=== PATIENT | female | born 2000 | race Hispanic/Latino ===

== ENCOUNTER 2024-02-12 19:21 | Emergency (ER) | payer SELFPAY ==
[2024-02-12 21:32] LABS: Absolute Eosinophils 0.1 K/uL (0-0.5); Absolute Lymphocytes (CBC) 3.2 K/uL (0.7-4.9); Absolute Monocytes 0.7 K/uL (0.1-1.3); Absolute Neutrophil 5.1 K/uL (1.8-8.0); Basophils % 0.5 % (0-1.3); Eosinophils % 0.6 % (0-4.4); Hematocrit 40.9 % (36.0-45.0); Hemoglobin 13.9 g/dL (12.0-15.0); Lymphocytes % 35.1 % (15.3-44.8); MCH 30.3 pg (27.0-35.0); MCV 89.1 fL (80-100); MPV 10.6 fL (7.6-11.3); Monocytes % 8.1 % (3.3-12.3); Neutrophils % 55.7 % (41.7-73.7); Nucleated Red Blood Cells % 0.1 % (0-0); Platelets 197 thou/uL (152-406); RBC Red Blood Cell Count 4.59 M/uL (3.86-4.86); Red Cell Distribution Width 13.6 % (12.1-15.2)
[2024-02-12 21:34] LABS: Specific Gravity 1.018 (1.005-1.030); Urine Bacteria None Seen /HPF (<20); Urine Bilirubin NEGATIVE (Negative); Urine Blood 3+ (Negative); Urine Clarity Extremely Turbid (Clear); Urine Color Light-Yellow (Yellow); Urine Culture Reflex Order NOT NEEDED; Urine Glucose NEGATIVE (Negative); Urine Ketones 4+ (Over) (Negative); Urine Microscopic Reflex YN ORDER UMIC; Urine Mucus 1+ /HPF (None Seen); Urine Nitrite NEGATIVE (Negative); Urine Protein NEGATIVE (Negative); Urine RBC <5 /HPF (None Seen); Urine Urobilinogen Normal (Normal); Urine WBC <5 /HPF (<5); Urine WBC Clump Rare /HPF (None Seen); Urine Yeast (Budding) Trace /HPF (None Seen); Urine pH 5.5 (5.0-7.0)
[2024-02-12] MEDS ORDERED: NA CHLORIDE 0.9% 1,000 ML ONE (21:45)
[2024-02-12 21:48] LABS: SARS-CoV-2 Antigen CONTROL BLUE LINE VIS/BG OK; SARS-CoV-2 Antigen Rapid Res Negative (Negative)
[2024-02-12 21:49] LABS: Albumin/Globulin Ratio 1.2 (1.1-1.8); Anion Gap 10.5 mEq/L (5.0-15.0); Bilirubin Total 0.5 mg/dL (0.2-1.0); Globulin 3.4 g/dL (2.3-3.5); Potassium 3.5 mEq/L (3.5-5.1); Protein, Total 7.4 g/dL (6.4-8.2)
--- NOTE | 2024-02-12 22:44 | RAD REPORT ---
EXAM: Soft Tissue Neck W/Contr INDICATION: Neck pain. Possible foreign body. Dysphasia. TECHNIQUE: Helical CT examination of the neck with IV 100 cc Isovue contrast. Sagittal and coronal re formations were generated. This exam was performed according to our departmental dose-optimization program, which includes automated exposure control, adjustment of the mA and/or kV according to patie nt size and/or use of iterative reconstruction technique. COMPARISON: None. FINDINGS: The pharynx, larynx and subglottic trachea are unremarkable Parotid, submandibular and thyroid glands appear normal. No lymphadenopathy seen. No fluid within the visualized sinuses/mastoids. A radiopaque foreign body not visualized. IMPRESSION: No significant abnormalities displayed
[2024-02-12] MEDS ORDERED: GLUCAGON 1 MG/VIAL ONE (23:12)
--- NOTE | 2024-02-13 00:53 | ER ---
Nurse's Notes [facility] Name: Patricia Hastings Age: 24 yrs Sex: Female : 2000 Arrival Date: 02/12/2024 Time: 19:21 Bed 14 Private MD: Diagnosis: Dysphagia, unspecified Presentation: 02/11 20:15 Chief complaint: Patient states: last three weeks I've had inflammation in my throat. tm6 It is hard to eat or drink because it feels like the food gets stuck. I went to a clinic and they gave me antibiotics, but they don't work. Coronavirus screen: Client denies travel out of the [place] in the last 14 days. Ebola Screen: Patient negative for fever greater than or equal to 101.5 degrees Fahrenheit, and additional compatible Ebola Virus Disease symptoms Patient denies exposure to infectious person. Patient denies travel to an Ebola-affected area in the 21 days before illness onset. No symptoms or risks identified at this time. Initial Sepsis Screen: Does the patient meet any 2 criteria? No. Patient's initial sepsis screen is negative. Does the patient have a suspected source of infection? No. Patient's initial sepsis screen is negative. Risk Assessment: Do you want to hurt yourself or someone else? Patient reports no desire to harm self or others. Onset of symptoms was January 22, 2024. 20:15 Method Of Arrival: Ambulatory tm6 20:18 Acuity: JANES 4 tm6 Triage Assessment: 20:18 General: Appears in no apparent distress. Behavior is calm, cooperative. Pain: tm6 Complains of pain in throat Pain currently is 10 out of 10 on a pain scale. Pain began three weeks ago. EENT: Reports difficulty swallowing since three weeks ago pain in throat. Neuro: Level of Consciousness is awake, alert, obeys commands, Oriented to person, place, time, situation. Cardiovascular: Patient's skin is warm and dry. Respiratory: Airway is patent Respiratory effort is even, unlabored, Respiratory pattern is regular, symmetrical. GI: No signs and/or symptoms were reported involving the gastrointestinal system. Abdomen is flat, non-distended. : No signs and/or symptoms were reported regarding the genitourinary system. Derm: No deficits noted. No signs and/or symptoms reported regarding the dermatologic system. Musculoskeletal: No signs and/or symptoms reported regarding the musculoskeletal system. 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 - Infectious Disease History:: Denies. - Social history:: Smoking status: Patient denies any tobacco usage or history of. Patient/guardian denies using alcohol. Screenin:49 [facility] ED Fall Risk Assessment (Adult) History of falling in the last 3 months, cp4 including since admission No falls in past 3 months (0 pts) Confusion or Disorientation No (0 pts) Intoxicated or Sedated No (0 pts) Impaired Gait No (0 pts) Mobility Assist Device Used No (0 pt) Altered Elimination No (0 pt) Score/Fall Risk Level 0 - 2 = Low Risk Oriented to surroundings, Maintained a safe environment, Assessed \T\ reinforced patient's understanding of fall precautions, Hourly rounding (assess needs \T\ fall precautionary measures) done. Abuse screen: Denies threats or abuse. Nutritional screening: No deficits noted. Tuberculosis screening: No symptoms or risk factors identified. Assessment: 21:49 General: Appears in no apparent distress. comfortable, Behavior is calm, cooperative, cp4 appropriate for age. Pain: Denies pain. Neuro: Level of Consciousness is awake, alert, obeys commands, Oriented to person, place, time, situation. Cardiovascular: Patient's skin is warm and dry. Respiratory: Airway is patent Respiratory effort is even, unlabored. GI: No signs and/or symptoms were reported involving the gastrointestinal system. : No signs and/or symptoms were reported regarding the genitourinary system. EENT: Reports difficulty swallowing. 23:21 Reassessment: Adoption Social Worker [id number] used to explain to patient medication and PO challenge.cp4 Vital Signs: 20:14 BP 144 / 88; Pulse 74; Resp 17; Temp 98.8(O); Pulse Ox 98% on R/A; MAP 103 mmHg; Weight tm6 58.97 kg; Height 5 ft. 4 in. ; Pain 10/10; 23:00 BP 124 / 94; Pulse 80; Resp 18; Pulse Ox 100% ; cp4 1012 01:03 BP 102 / 78; Pulse 81; Resp 18; Pulse Ox 99% ; cp4 02/11 20:14 Body Mass Index 21.66 (58.97 kg, 165 cm) tm6 02/11 20:14 Pain Scale: Adult tm6 ED Course: 02/11 19:24 Patient arrived in ED. am2 19:59 [facility] sb4 19:59 Varinder Almaraz MD is Attending Physician. sb4 20:15 Arm band placed on right wrist. tm6 20:20 Triage completed. tm6 21:24 Flu Sent. ha1 21:24 SARS RAPID Sent. ha1 21:24 Strep Sent. ha1 21:24 Inserted saline lock: 20 gauge in right antecubital area, using aseptic technique. ha1 Blood collected. Flushed with 10 mL NS. 21:42 Maria A Maharaj is Primary Nurse. cp4 21:49 Bed in low position. Call light in reach. Side rails up X 1. cp4 21:49 No provider procedures requiring assistance completed. cp4 22:16 CT Soft Tissue Neck W/contr In Process Unspecified. EDMS 02/12 00:52 Shiv Back MD is Referral Physician. sb4 00:52 Liliya Frankel MD is Referral Physician. sb4 01:04 Provided Education on: globus pharyngeus. cp4 01:04 intact, bleeding controlled, No redness/swelling at site. Pressure dressing applied. cp4 Administered Medications: 02/11 21:47 Drug: NS 0.9% IV 1000 ml IV at 1 bolus Per protocol; to be given as a bolus over 60 cp4 minutes Route: IV; Rate: 1 bolus; Site: right antecubital; 23:09 Follow up: Response: No adverse reaction; IV Status: Completed infusion cp4 23:21 Drug: Glucagon IVP 1 mg IVP once Route: IVP; Site: right antecubital; cp4 02/12 00:00 Follow up: Response: No adverse reaction cp4 Medication: 02/11 21:49 VIS not applicable for this client. cp4 Outcome: 02/12 00:52 Discharge ordered by . sb4 01:04 Discharged to home ambulatory, cp4 01:04 Condition: stable 01:04 Discharge instructions given to patient, Instructed on discharge instructions, follow up and referral plans. medication usage, Demonstrated understanding of instructions, follow-up care, medications, lang interpreter #[id number] used to discharge patient. 01:05 Patient left the ED. cp4 Signatures: Dispatcher [employer] ED Rodney Mari am2 Sonia Murphy, RN RN ha1 Liza Farley, PABita PABita mclaughlin4 Maria A Maharaj cp4 Halina Araiza RN RN tm6 Corrections: (The following items were deleted from the chart) 02/11 20:20 20:15 Chief complaint: Patient states: last three weeks I've had inflammation in my tm6 throat. It is hard to eat or drink tm6
--- NOTE | 2024-02-13 00:53 | EDPHYS ---
Physician Documentation [facility] Name: Patricia Hastings Age: 24 yrs Sex: Female : 2000 Arrival Date: 02/12/2024 Time: 19:21 Bed 14 Private MD: ED Physician Varinder Almaraz HPI: 02/11 22:49 This 24 yrs old Female presents to ER via Ambulatory with complaints of sb4 difficulty swallowing. 22:49 The patient presents with dysphagia, of both solids and liquids, a foreign body sb4 sensation in the throat. Onset: The symptoms/episode began/occurred 3 week(s) ago. 02/12 02:07 Foreign body sensation and difficulty swallowing for 3 weeks. Saw PCP who gave sb4 antibiotic injection. Patient states that symptoms have not improved. She is able to swallow but just feels like there is a lump in her throat. Has not regurgitated or vomited. 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 - Infectious Disease History:: Denies. - Social history:: Smoking status: Patient denies any tobacco usage or history of. Patient/guardian denies using alcohol. ROS: 02/12 02:07 Constitutional: Negative for fever, chills, and weight loss, sb4 ENT: Positive for difficulty swallowing, All other systems are negative, Exam: 02:07 Constitutional: This is a well developed, well nourished patient who is awake, alert, sb4 and in no acute distress. Head/Face: Normocephalic, atraumatic. Eyes: Extra-ocular motions intact. Periorbital areas with no swelling, redness, or edema. Cardiovascular: Regular rate and rhythm with a normal S1 and S2. Respiratory: Lungs have equal breath sounds bilaterally, clear to auscultation and percussion. No rales, rhonchi or wheezes noted. No increased work of breathing, no retractions or nasal flaring. Skin: Warm, dry with normal turgor. Normal color with no rashes, no lesions, and no evidence of cellulitis. 02:07 ENT: Posterior pharynx: Airway: normal, no evidence of obstruction, patent, Tonsils: are normal in appearance, 02:07 Neck: External neck: is normal, no acute changes, Thyroid: appears normal, Vital Signs: 02/11 20:14 BP 144 / 88; Pulse 74; Resp 17; Temp 98.8(O); Pulse Ox 98% on R/A; MAP 103 mmHg; Weight tm6 58.97 kg; Height 5 ft. 4 in. ; Pain 02/10; 23:00 BP 124 / 94; Pulse 80; Resp 18; Pulse Ox 100% ; cp4 02/12 01:03 BP 102 / 78; Pulse 81; Resp 18; Pulse Ox 99% ; cp4 02/11 20:14 Body Mass Index 21.66 (58.97 kg, 165 cm) tm6 02/11 20:14 Pain Scale: Adult tm6 MDM: 02/11 20:00 Patient medically screened. sb4 02/12 02:09 Data reviewed: vital signs, nurses notes, lab test result(s), radiologic studies, I sb4 have discussed the patient's presentation/case with the attending Emergency Department Physician; and as a result, I will discharge patient. 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 ED course: Patient is tolerating p.o. but still states she feels "inflammation" in her throat. Vitals are stable, she is handling her secretions fine, will discharge home with steroids and PPIs, and follow-up instructions with ENT and GI. 02/11 20:28 Order name: CBC with Diff; Complete Time: 21:41 sb4 02/11 20:28 Order name: CMP; Complete Time: 21:51 sb4 02/11 20:28 Order name: Lipase; Complete Time: 21:51 sb4 02/11 20:28 Order name: Test, Urine; Complete Time: 21:40 sb4 02/11 20:28 Order name: Urinalysis w/ reflexes; Complete Time: 21:40 sb4 02/11 20:28 Order name: Strep sb4 02/11 20:28 Order name: SARS RAPID; Complete Time: 21:51 sb4 02/11 20:28 Order name: Flu; Complete Time: 21:56 sb4 02/11 21:50 Order name: Throat Culture EDMS 02/11 20:28 Order name: CT Soft Tissue Neck W/contr; Complete Time: 22:45 sb4 02/11 20:28 Order name: IV Saline Lock; Complete Time: 21:24 sb4 02/11 20:28 Order name: Labs collected and sent; Complete Time: 21:24 sb4 02/11 22:46 Order name: PO challenge: carbonation; Complete Time: 23:40 sb4 Administered Medications: 02/11 21:47 Drug: NS 0.9% IV 1000 ml IV at 1 bolus Per protocol; to be given as a bolus over 60 cp4 minutes Route: IV; Rate: 1 bolus; Site: right antecubital; 23:09 Follow up: Response: No adverse reaction; IV Status: Completed infusion cp4 23:21 Drug: Glucagon IVP 1 mg IVP once Route: IVP; Site: right antecubital; cp4 02/12 00:00 Follow up: Response: No adverse reaction cp4 Disposition Summary: 02/13/24 00:52 Discharge Ordered Notes: Location: Home sb4 Problem: an ongoing problem sb4 Symptoms: are unchanged sb4 Condition: Stable sb4 Diagnosis - Dysphagia, unspecified sb4 Followup: sb4 - With: Shiv Back MD - When: 2 - 3 days - Reason: Further diagnostic work-up, Recheck today's complaints, Re-evaluation by your physician Followup: sb4 - With: Liliya Frankel MD - When: As needed - Reason: Further diagnostic work-up, Recheck today's complaints, Re-evaluation by your physician Discharge Instructions: - Discharge Summary Sheet sb4 - Dysphagia sb4 - Globus Pharyngeus sb4 Forms: - Patient Portal Instructions sb4 - Leadership Thank You Letter sb4 Prescriptions: - pantoprazole 40 mg Oral granules delayed release for susp packet - administer 1 packet ORAL route daily for 4 wks; 20 packet; Refills: 0, Product sb4 Selection Permitted - prednisone 5 mg/5 mL Oral solution - take 20 milliliter ORAL route every 12 hours for 5 days; 200 milliliter; sb4 Refills: 0, Product Selection Permitted Addendum: 02/16/2024 13:29 Co-signature as Attending Physician, Varinder Almaraz MD I reviewed the patient's care r t provided by the Advanced Practice Provider and agree with the diagnosis and treatment plan. Signatures: Dispatcher [employer] EDMS Liza Farley, PAMoniC PABita sb4 Varinder Almaraz MD MD rt Maria A Maharaj 4 Halina Araiza RN RN tm6 Corrections: (The following items were deleted from the chart) 02/11 20:29 20:29 CBC+H.LAB.BRZ ordered. EDMS EDMS 20:29 20:29 COMPREHENSIVE METABOLIC PANEL+C.LAB.BRZ ordered. EDMS EDMS 20:29 20:29 LIPASE+C.LAB.BRZ ordered. EDMS EDMS 20:29 20:29 Test, Urine+UC.LAB.BRZ ordered. EDMS EDMS 20:29 20:29 Urinalysis+U.LAB.BRZ ordered. EDMS EDMS 20:29 20:29 Group A Streptococcus Rapid Sc+BA.LAB.BRZ ordered. EDMS EDMS 20:29 20:29 SARS-COV-2 Antigen Rapid+I.LAB.BRZ ordered. EDMS EDMS 20:29 20:29 Influenza Screen (A \\T\\ B)+BA.LAB.BRZ ordered. EDMS EDMS 20:29 20:29 Soft Tissue Neck W/Contr+CT.RAD.BRZ ordered. EDMS EDMS
[2024-02-13 05:06] VITALS: TEMP 98.8
[2024-02-13 05:10] VITALS: BP 102/78; O2SAT 99
== END 2024-02-13 01:05 | disposition home or self-care (01) ==
LOC: ER 19:21
DX: R13.10 Dysphagia, unspecified (principal); Z11.52 Encounter for screening for COVID-19
CPT/HCPCS: 36415; 70491; 80053; 81001; 81025; 83690; 85025; 87070; 87081; 87804; 87811; 96361; 96374; 99284; J1610; J7030; Q9967

== ENCOUNTER 2024-07-15 19:34 | Inpatient (IN) | payer SELFPAY ==
--- OUTSIDE RECORDS SUMMARY | 2024-07-15 19:39 | XMS REPORT | Continuity of Care Document ---
Author Name Unknown Address [address] [facility] [address] [place] [address] [facility] Address [address] [facility] [place] [address] Care Team Providers Care Spice Mixer Name Role Phone PAIGE CELAYA Primary Care Physician Unav ailable SHAREE SHERWOOD Attending Clinician Unavaila ble PAIGE CELAYA Attending Clinician Unavail able Nurse, Chris Ott Rgv Cprit Obgyn Attending Clini olga Unavailable Akinaubree WHPaige FLOWERS Attending Clinician + CHRIS JACKSON Attending Clinician Unavailable ALLAN ADLER Attending Clinician Unavailable ALLAN ADLER Attending Clinician Unavailable Mihir Barragan MD Attending Clinician Guillermina Callahan MD Attending Clinician [phone] 1, [facility] Attending Clinician UnavailGrisel Aguirre MD Attending Clinician [phone] GRISEL BARRAGAN Attending Clinician Unavailable GRISEL BARRAGAN Attending Clinician Unavailable 2, [facility] Attending Clinician UnavailChandrika Flores CNM Attending Clinician [phone] Provider, Bhakti Abarca Attending Clinician Stephanie vailable Doctor Unassigned, [place] Attending Clinician U navALLAN Gutierrez Admitting Clinician Unavailable Payers Payer Name Policy Type Policy Number Effective Date Expirati on Date Source [employer] DONNA LOW FPL [id number] 2023 00:00:00 [employer]ILY [employer] 0-100% [id number] 2022 00:00:00 [facility] TP30 EMERGENCY MEDICAID [id number] 2022 00:00:00 2022 00:00:00 Problems Condition Name Condition Details Condition Category Status Onset Date Resolution Date Last Treatment Date Treating Clinician Comments Source Anemia, Anemia, Disease Active 10-30 00:00: 00 [facility] (spontaneo us vaginal delivery) (spontaneo us vaginal delivery) Disease Recurre nce 10-29 00:00: 00 [facility] Single live Single live Disease Active 10-29 00:00: 00 [facility] 37 weeks gestation of 37 weeks gestation of Disease Active 10-28 00:00: 00 [facility] growth restrictio n, 2,000-2,49 9 grams growth restrictio n, 2,000-2,49 9 grams Disease Active 10-28 00:00: 00 [facility] Supervisio n of high-risk Supervisio n of high-risk Disease Active 2021-05 00:00: 00 [facility] Allergies, Adverse Reactions, Alerts Allergy Name Allergy Type Status Severity Reaction(s) Onset Date Inactive Date Treating Clinician Comments Source NO KNOWN ALLERGIE S Drug Class Active [facility] Social History Social Habit Start Date Stop Date Quantity Comments Source ASSERTION 2022-02-25 00:00:00 [facility] intake 2022-10-28 00:00:00 2022-10-28 00:00:00 Ex-drinker (finding) [facility] History of Social function 2022-10-28 00:00:00 2022-10-28 00:00:00 [facility] Exposure to SARS-CoV-2 (event) 2022-09-16 00:00:00 2022-09-26 07:52:00 Not sure [facility] Tobacco use and exposure 2022-04-23 00:00:00 2022-04-23 00:00:00 Smokeless tobacco non-user [facility] Sex Assigned At 2000 00:00:00 2000 00:00:00 [facility] Smoking Status Start Date Stop Date Source Tobacco smoking consumption unknown [facility] Never smoked tobacco [facility] Medications Ordered Medication Name Filled Medication Name Start Date Stop Date Current Medication? Ordering Clinician Indication Dosage Frequency Signature (SIG) Comments Components Source vit no.130-iron -folic ( VITAMIN) 10-30 00:00: 00 Yes [id number] 1{tbl} Take 1 tablet by mouth daily. [facility] docusate 100 mg capsule 10-30 00:00: 00 Yes [id number] 200mg Take 2 capsules by mouth once daily as needed for Constipati on. [facility] ibuprofen 600 mg tablet 10-30 00:00: 00 Yes [id number] 600mg Take 1 tablet by mouth every 6 (six) hours as needed (Pain). Take with food or milk. [facility] Iron Fum & P-FA-Vit B & C No.9 (INTEGRA PLUS) 125 mg iron- 1 mg Cap 10-30 00:00: 00 Yes [id number] 1{capsu le} Take 1 capsule by mouth daily. [facility] vit no.130-iron -folic ( VITAMIN) 10-30 00:00: 00 Yes [id number] 1{tbl} Take 1 tablet by mouth daily. [facility] Iron Fum & P-FA-Vit B & C No.9 (INTEGRA PLUS) 125 mg iron- 1 mg Cap 10-30 00:00: 00 Yes [id number] 1{capsu le} Take 1 capsule by mouth daily. [facility] acetaminoph en (TYLENOL) tablet 650 mg 10-28 19:00: 00 Yes 650mg 650 mg, Oral, Q6H, First dose on Thu10/28/22 at 1400, Until Discontinu ed, Routine [facility] ibuprofen (IBU) tablet 600 mg 10-28 18:00: 00 Yes 600mg 600 mg, Oral, Q6H, First dose on Thu10/28/22 at 1300, Until Discontinu ed, Routine [facility] rho(D) immune globulin (RHOGAM) syringe 300 mcg 10-28 17:45: 20 Yes 300ug 300 mcg, Intramuscu lar, ONCE, For 1 dose, Conditiona l, Routine [facility] diphenhydrA MINE (BENADRYL) tablet 25 mg 10-28 17:45: 15 Yes 25mg 25 mg, Oral, Q6HPRN, Starting on Thu10/28/22 at 1245, Until Discontinu ed, Routine, Sleep, Itching [facility] ondansetron (ZOFRAN (PF)) injection 4 mg 10-28 17:45: 15 Yes 4mg 4 mg, Slow IV Push, Q8HPRN, Starting on Thu10/28/22 at 1245, Until Discontinu ed, Routine, Nausea and Vomiting (N/V) [facility] simethicone (GAS RELIEF (SIMETHICON E)) chewable tablet 160 mg 10-28 17:45: 15 Yes 160mg 160 mg, Oral, PC+HSPRN, Starting on Thu10/28/22 at 1245, Until Discontinu ed, Routine, Gas [facility] docusate (COLACE) capsule 200 mg 10-28 17:45: 15 Yes 200mg 200 mg, Oral, QDAILYPRN, Starting on Thu10/28/22 at 1245, Until Discontinu ed, Routine, Constipati on [facility] magnesium hydroxide (MILK OF MAGNESIA) 400 mg/5 mL suspension 30 mL 10-28 17:45: 15 Yes 30mL 30 mL, Oral, QDAILYPRN, Starting on Thu10/28/22 at 1245, Until Discontinu ed, Routine, Constipati on [facility] benzocaine- menthol (DERMOPLAST ) 20-0.5 % topical spray 10-28 17:45: 15 Yes Topical, PRN, Starting on Thu10/28/22 at 1245, Until Discontinu ed, Routine, Perineum discomfort [facility] human papillomav vac,9-oliiva(P F) (GARDASIL-9 ) syringe 0.5 mL 10-28 17:45: 15 10-30 17:52 :00 No .5mL 0.5 mL, Intramuscu lar, ONCE-PRIOR TO DISCHARGE, 1 dose, Starting on Thu10/28/22 at 1245, Until Discontinu ed, Routine, Give vaccine prior to discharge [facility] oxytocin (PITOCIN) 30 units in NS 500 mL IV infusion 10-28 15:40: 09 10-28 17:45 :18 No 600mL/h 600 mL/hr, IV Infusion, PRN, For post delivery uterine atony., Starting on Thu10/28/[address] at 600 mL/hr for 1 hr then 150 mL/hr for 1 hr.
[facility] ropivacaine 0.2 % (NAROPIN (PF)) epidural infusion 10-28 13:15: 00 10-28 17:50 :48 No Epidural, CONTINUOUS PRN, Starting on Thu10/28/22 at 0815, Until Discontinu ed, Routine, Intra-op [facility] lidocaine-e pinephrine (XYLOCAINE W/EPINEPHRI NE) 1.5 %-1:200,000 injection 10-28 13:11: 00 10-28 17:50 :48 No Intraderma l, ONCE INTRA PROCEDURE, Starting on Thu10/28/22 at 0811, Until Discontinu ed, Routine, Intra-op [facility] oxytocin (PITOCIN) 30 units in NS 500 mL IV infusion 10-28 12:17: 39 10-28 17:45 :18 No 2mU/min at 2-40 mL/hr, IV Infusion, TITRATE, Starting on Thu10/28/22 at 0717, Until Thu10/28/22 at 1245, CHANDU [facility] sodium citrate-cit stalin acid (BICITRA) 500-334 mg/5 mL solution 30 mL 10-28 11:16: 21 10-28 12:47 :00 No 30mL 30 mL, Oral, PRE-PROCED URE ONCE, 1 dose, Starting on Thu10/28/22 at 0616, Until Thu10/28/22 at 0747, Routine, Surgery/Pr ocedure [facility] lactated ringers IV infusion 500 mL 10-28 11:16: 21 10-28 17:45 :18 No 500mL at 999 mL/hr, 500 mL, IV Infusion, PRN - SEE INSTRUCTIO NS, Starting on Thu10/28/22 at 0616, Until Thu10/28/22 at 1245, Routine [facility] D5W-LR IV infusion 1,000 mL 10-28 11:16: 21 10-28 17:45 :18 No 1000mL at 1-125 mL/hr, IV Infusion, TITRATE, Starting on Thu10/28/22 at 0616, Until Thu10/28/22 at 1245, Routine [facility] No known medications 05-30 08:49: 07 No No known medication s [facility] No known medications 2021-05 15:04: 48 No No known medication s [facility] Immunizations Ordered Immunization Name Filled Immunization Name Date Status Comments Source HPV9 2022-10-30 00:00:00 Completed [facility] TDAP 2022-08-29 00:00:00 Completed [facility] TDAP 2022-08-29 00:00:00 Completed [facility] TDAP 2022-08-29 00:00:00 Completed [facility] TDAP 2022-08-29 00:00:00 Completed [facility] TDAP 2022-08-29 00:00:00 Completed [facility] TDAP 2022-08-29 00:00:00 Completed [facility] TDAP 2022-08-29 00:00:00 Completed [facility] TDAP Unknown Completed [facility] HPV9 Unknown Completed [facility] TDAP Unknown Completed [facility] HPV9 Unknown Completed [facility] Vital Signs Vital Name Observation Time Observation Value Comments Chang lujan Body temperature 2023-03-13 21:58:00 36.5 [place] [facility] Systolic blood pressure 2022-10-30 12:57:00 113 mm[Hg] [facility] Diastolic blood pressure 2022-10-30 12:57:00 67 mm[Hg] [facility] Heart rate 2022-10-30 12:57:00 70 /min Unive [facility] Body temperature 2022-10-30 12:57:00 36.78 [place] [facility] Respiratory rate 2022-10-30 12:57:00 18 /min [facility] Oxygen saturation in Arterial blood by Pulse oximetry 2022-10-30 12:57:00 97 /min [facility] Body weight 2022-10-28 10:01:00 68.04 kg [facility] BMI 2022-10-28 10:01:00 25.75 kg/m2 [facility] Systolic blood pressure 2022-10-24 17:48:00 115 mm[Hg] [facility] Diastolic blood pressure 2022-10-24 17:48:00 64 mm[Hg] [facility] Heart rate 2022-10-24 17:48:00 90 /min Unive [facility] Body temperature 2022-10-24 17:48:00 36.22 [place] [facility] Respiratory rate 2022-10-24 17:48:00 20 /min [facility] Body height 2022-10-24 17:48:00 162.6 cm [facility] Body weight 2022-10-24 17:48:00 66.769 kg [facility] BMI 2022-10-24 17:48:00 25.27 kg/m2 [facility] Systolic blood pressure 2022-10-10 20:52:00 113 mm[Hg] [facility] Diastolic blood pressure 2022-10-10 20:52:00 71 mm[Hg] [facility] Heart rate 2022-10-10 20:52:00 86 /min Unive [facility] Body temperature 2022-10-10 20:52:00 36.67 [place] [facility] Respiratory rate 2022-10-10 20:52:00 18 /min [facility] Body height 2022-10-10 20:52:00 162.6 cm [facility] Body weight 2022-10-10 20:52:00 67.541 kg [facility] BMI 2022-10-10 20:52:00 25.56 kg/m2 [facility] Systolic blood pressure 2022-09-26 12:53:00 118 mm[Hg] [facility] Diastolic blood pressure 2022-09-26 12:53:00 71 mm[Hg] [facility] Heart rate 2022-09-26 12:53:00 77 /min Unive [facility] Body temperature 2022-09-26 12:53:00 36.17 [place] [facility] Respiratory rate 2022-09-26 12:53:00 18 /min [facility] Body height 2022-09-26 12:53:00 162.6 cm [facility] Body weight 2022-09-26 12:53:00 65.953 kg [facility] BMI 2022-09-26 12:53:00 24.96 kg/m2 [facility] Systolic blood pressure 2022-09-12 13:11:00 123 mm[Hg] [facility] Diastolic blood pressure 2022-09-12 13:11:00 79 mm[Hg] [facility] Heart rate 2022-09-12 13:11:00 89 /min Unive [facility] Body temperature 2022-09-12 13:11:00 35.39 [place] [facility] Respiratory rate 2022-09-12 13:11:00 18 /min [facility] Body height 2022-09-12 13:11:00 162.6 cm [facility] Body weight 2022-09-12 13:11:00 64.774 kg [facility] BMI 2022-09-12 13:11:00 24.51 kg/m2 [facility] Systolic blood pressure 2022-08-29 13:15:00 117 mm[Hg] [facility] Diastolic blood pressure 2022-08-29 13:15:00 70 mm[Hg] [facility] Heart rate 2022-08-29 13:15:00 89 /min Unive [facility] Body temperature 2022-08-29 13:15:00 36.78 [place] [facility] Respiratory rate 2022-08-29 13:15:00 18 /min [facility] Body height 2022-08-29 13:15:00 162.6 cm [facility] Body weight 2022-08-29 13:15:00 63.776 kg [facility] BMI 2022-08-29 13:15:00 24.13 kg/m2 [facility] Systolic blood pressure 2022-07-09 15:00:00 121 mm[Hg] [facility] Diastolic blood pressure 2022-07-09 15:00:00 72 mm[Hg] [facility] Heart rate 2022-07-09 15:00:00 87 /min Unive [facility] Body temperature 2022-07-09 15:00:00 36.83 [place] [facility] Respiratory rate 2022-07-09 15:00:00 18 /min [facility] Body height 2022-07-09 15:00:00 162.6 cm [facility] Body weight 2022-07-09 15:00:00 57.652 kg [facility] BMI 2022-07-09 15:00:00 21.82 kg/m2 [facility] Systolic blood pressure 2022-05-30 14:31:00 113 mm[Hg] [facility] Diastolic blood pressure 2022-05-30 14:31:00 69 mm[Hg] [facility] Heart rate 2022-05-30 14:31:00 84 /min Unive [facility] Body temperature 2022-05-30 14:31:00 37 [place] [facility] Respiratory rate 2022-05-30 14:31:00 17 /min [facility] Body height 2022-05-30 14:31:00 162.6 cm [facility] Body weight 2022-05-30 14:31:00 53.298 kg [facility] BMI 2022-05-30 14:31:00 20.17 kg/m2 [facility] Systolic blood pressure 2022-04-23 21:02:00 137 mm[Hg] [facility] Diastolic blood pressure 2022-04-23 21:02:00 82 mm[Hg] [facility] Heart rate 2022-04-23 21:02:00 84 /min [facility] Body temperature 2022-04-23 21:02:00 36.39 [place] [facility] Respiratory rate 2022-04-23 21:02:00 18 /min [facility] Body height 2022-04-23 21:02:00 165 cm [facility] Body weight 2022-04-23 21:02:00 52.254 kg [facility] BMI 2022-04-23 21:02:00 19.19 kg/m2 [facility] Procedures Procedure Date / Time Performed Performing Clinicia n Source GARDASIL 9 (HPV 9V) VACCINE 2023-03-13 22:00:04 Paige Celaya [facility] CBC WITH DIFF 2022-10-29 11:20:00 Silvana Cho Mai [facility] VENOUS CORD GAS 2022-10-28 15:12:00 Rocael Mendez [facility] CENTRAL NEURAXIAL BLOCK 2022-10-28 12:45:00 Mihir Barragan [facility] CBC WITH DIFF 2022-10-28 12:33:00 Rocael Mendez [facility] HEPATITIS B SURFACE ANTIGEN 2022-10-28 12:33:00 Breanna Mendez [facility] HB ABO GROUPING 2022-10-28 12:33:00 Rocael Mendez [facility] RHO (D) IMMUNE GLOBULIN 2022-10-28 12:33:00 Luci Cho Mai [facility] HIV 1/2 AG-AB WITH REFLEX 2022-10-28 12:33:00 Breanna Mendez [facility] SYPHILIS IGG/IGM 2022-10-28 12:33:00 Surendra Mendez [facility] CONSENT/REFUSAL FOR DIAGNOSIS AND TREATMENT 2022-10-28 09:52:49 Doctor Unassigned, [place] [facility] POCT URINALYSIS 2022-10-24 00:00:00 Paige Celaya [facility] POCT URINALYSIS 2022-10-10 20:54:00 Paige Celaya [facility] POCT URINALYSIS 2022-09-26 12:55:00 Paige Celaya [facility] POCT URINALYSIS 2022-09-12 13:13:00 Paige Celaya [facility] TDAP VACCINE, >11 YRS, IM 2022-08-29 13:39:24 Paige Celaya [facility] POCT URINALYSIS 2022-08-29 13:17:00 Paige Celaya [facility] POCT URINALYSIS 2022-07-09 15:01:00 Paige Celaya [facility] POCT URINALYSIS 2022-05-30 00:00:00 Paige Celaya [facility] CBC WITH DIFF 2022-04-23 21:30:00 Paige Celaya [facility] RUBELLA SCREEN IGG 2022-04-23 21:30:00 Koko Celaya [facility] VZV ANTIBODY SCREEN 2022-04-23 21:30:00 Eduin Celaya [facility] HEPATITIS B SURFACE ANTIGEN 2022-04-23 21:30:00 Paige Celaya [facility] HB ABO GROUPING 2022-04-23 21:30:00 Paige Celaya [facility] GC & CHLAMYDIA AMPLIFIED ASSAY 2022-04-23 21:30:00 Paige Celaya [facility] HIV 1/2 AG-AB WITH REFLEX 2022-04-23 21:30:00 Paige Celaya [facility] GALV ONLY - SYPHILIS IGG/IGM 2022-04-23 21:30:00 Paige Celaya [facility] POCT TEST 2022-04-23 21:10:00 Eduin Celaya [facility] POCT URINALYSIS W/O SPECIFIC GRAVITY 2022-04-23 21:09:00 Paige Celaya [facility] ASSIGNMENT OF BENEFITS 2022-04-23 20:18:48 Docto r Unassigned, [place] [facility] Encounters Start Date/Time End Date/Time Encounter Type Admission Type Attending [facility] Care Facility Care Department Encounter ID Source 2024-02-12 00:00:00 2024-02-12 00:00:00 Outpatient SHAREE SHERWOOD [id number] Nora Bruce 2023-07-13 15:45:00 2023-07-13 15:45:00 Outpatient R [facility] [id number] [facility] 2023-03-13 15:30:00 2023-03-13 15:56:51 Outpatient R PAIGE CELAYA [facility] [id number] [facility] 2023-03-13 15:30:00 2023-03-13 15:56:51 Nurse Visit Nurse, Chris Rmchp Rgv Cprit Obgyn Paige Celaya [facility] VAC[facility] MATERNAL & CHILD [facility] [id number] [id number] [facility] 2023-03-11 14:00:00 2023-03-11 14:00:00 Outpatient R [facility] [id number] [facility] 2022-12-23 13:45:00 2022-12-23 13:45:00 Outpatient R [facility] [id number] [facility] 2022-12-23 13:15:00 2022-12-23 13:15:00 Outpatient R PAIGE CELAYAMB [facility] [id number] [facility] 2022-12-04 00:00:00 2022-12-04 00:00:00 Patient Secure Koko Escotoola [place] [facility] VACATION [facility] MATERNAL & CHILD [facility] 1..840.114 350.1.13.10 [id number] [id number] [facility] 2022-11-28 13:00:00 2022-11-28 13:00:00 Outpatient Edson AURORAAGUSTINPAIGE BARRERA [facility] [id number] [facility] 2022-11-03 15:30:00 2022-11-03 15:30:00 Outpatient Edson HARPERBRUCEMARIAMPAIGE [facility] [id number] [facility] 2022-10-31 14:15:00 2022-10-31 14:15:00 Outpatient P [facility] [id number] [facility] 2022-10-28 05:06:00 2022-10-30 13:51:00 Inpatient P ALLAN ADLER ALLAN [facility] NIELS [id number] [facility] 2022-10-28 05:06:00 2022-10-30 13:51:00 Hospital Encounter Gene Allan [facility] 1..840.114 350.1.13.10 [id number] [id number] [facility] 2022-10-28 07:48:00 2022-10-28 12:50:00 Anesthesia Event Mihir BarraganahimGuillermina [facility] 1..840.114 350.1.13.10 4.2.7.2.686 [id number] [facility] 2022-10-24 12:45:00 2022-10-24 13:33:27 Outpatient R PAIGE CELAYA [facility] [id number] [facility] 2022-10-24 12:45:00 2022-10-24 13:33:27 Routine Visit Paige Celaya [facility] [id number] 350.1.13.10 [id number] [id number] [facility] 2022-10-16 11:30:00 2022-10-16 11:30:00 Outpatient P [facility] [id number] [facility] 2022-10-10 16:00:00 2022-10-10 16:09:59 Outpatient R PAIGE CELAYA [facility] [id number] [facility] 2022-10-10 16:00:00 2022-10-10 16:09:59 Routine Visit Koko Celayaola [place] [facility] VACATION [facility] 1..840.114 350.1.13.10 4.2.7.2.686 [id number] [facility] 2022-10-10 16:00:00 2022-10-10 16:00:00 Outpatient R PAIGE CELAYA [facility] [id number] [facility] 2022-09-26 07:45:00 2022-09-26 08:07:32 Outpatient R MARIAM CELAYAILOLA [facility] [id number] [facility] 2022-09-26 07:45:00 2022-09-26 08:07:32 Routine Visit Koko Celayaola [place] [facility] VACATION [facility] 1.2.840.114 350.1.13.10 4.2.7.2.686 [id number] [facility] 2022-09-12 08:00:00 2022-09-12 08:57:05 Outpatient R PAIGE CELAYA [facility] [id number] [facility] 2022-09-12 08:00:00 2022-09-12 08:57:05 Routine Visit Belia Paige [place] [facility] VACATION [facility] MATERNAL & CHILD [facility] 1..840.114 350.1.13.10 4.2.7.2.686 [id number] [facility] 2022-09-05 10:30:00 2022-09-05 10:30:00 Outpatient R AURORAAGUSTINBRUCE PAIGE [facility] [id number] [facility] 2022-08-29 08:00:00 2022-08-29 09:06:43 Outpatient R AURORAAGUSTINBRUCE PAIGE [facility] [id number] [facility] 2022-08-29 08:00:00 2022-08-29 09:06:43 Routine Visit Belia Paige [place] [facility] VACATION [facility] MATERNAL & CHILD [facility] 1..840.114 350.1.13.10 4.2.7.2.686 [id number] [facility] 2022-08-06 11:00:00 2022-08-06 11:00:00 Outpatient R LEROYBRUCE PAIGE [facility] [id number] [facility] 2022-07-09 09:00:00 2022-07-09 09:13:52 Routine Visit Belia Paige [place] [facility] VACATION [facility] MATERNAL & CHILD [facility] 1..840.114 350.1.13.10 4.2.7.2.686 [id number] [facility] 2022-07-09 09:00:00 2022-07-09 09:13:52 Outpatient R LEROYBRUCE PAIGE [facility] [id number] [facility] 2022-07-08 10:45:00 2022-07-08 11:30:00 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 1, [facility] Room Grisel Barragan [facility] VACATION [facility] MATERNAL & CHILD [facility] 1.2.840.114 350.1.13.10 4.2.7.2.686 [id number] [facility] 2022-07-08 10:45:00 2022-07-08 10:45:00 Outpatient GRISEL DE LA CRUZ SANGEETA [facility] [id number] [facility] 2022-06-27 10:45:00 2022-06-27 10:45:00 Outpatient R PAIGE CELAYA [facility] [id number] [facility] 2022-06-05 09:00:00 2022-06-05 10:00:00 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 2, [facility] Room Gene Allan [facility] VACATION [facility] MATERNAL & CHILD HEALTH [facility] .840.114 350.1.13.10 4.2.7.2.686 [id number] [facility] 2022-06-05 09:00:00 2022-06-05 09:00:00 Outpatient P GENE ALLAN [facility] [id number] [facility] 2022-06-05 00:00:00 2022-06-05 00:00:00 Case Management Chandrika Esposito [facility] VACATION [facility] MATERNAL & CHILD HEALTH [facility] .840.114 350.1.13.10 4.2.7.2.686 [id number] [facility] 2022-05-30 08:30:00 2022-05-30 11:23:44 Outpatient R PAIGE CELAYA [facility] [id number] [facility] 2022-05-30 08:30:00 2022-05-30 11:23:44 Routine Visit Provider, Paige Donald [facility] VACATION [facility] MATERNAL & CHILD [facility] .840.114 350.1.13.10 4.2.7.2.686 [id number] [facility] 2022-05-21 13:15:00 2022-05-21 13:15:00 Outpatient R AURORAPAIGE MAK [facility] [id number] [facility] 2022-04-23 14:30:00 2022-04-23 15:32:38 Outpatient R AURORAAUBREE PAIGE [facility] [id number] [facility] 2022-04-23 15:00:00 2022-04-23 15:32:21 Outpatient R AURORAPAIGE MAK [facility] [id number] [facility] 2022-04-23 15:00:00 2022-04-23 15:32:21 Initial Visit Paige Celaya [facility] VACATION [facility] MATERNAL & [facility]ILD [facility] 1..840.114 350.1.13.10 4.2.7.2.686 [id number] [facility] 2022-04-23 00:00:00 2022-04-23 00:00:00 Orders Only Doctor Unassigned, [place] [facility] 1.840.114 350.1.13.10 4.2.7.2.686 [id number] [facility] Results Test Description Test Time Test Comments Results Result Co mments Source [facility] IMMUNE [id number] 17:51:50* Test Item Value Reference Range Interpretation Comme nts RHIG CANDIDATE? (test code = 5188) No- see comment Patient is not a candidate for RhIg- Patient is Rh Positive.Performed at [facility] Laboratory Services - [facility] Blood [address] [place] [id number] Free: [phone] No. [id number] [facility]fieldVenous Cord [id number] 15:24:12* Test Item Value Reference Range Interpretation Comme nts VENOUS BASE EXCESS, CORD (test code = 0022096589) -3.4 mEq/L VENOUS PH, CORD (test code = 0817054627) 7.28 7.25-7.45 VENOUS PC02, CORD (test code = 3908981373) 52 See_Comment H [Automated me ssage] The system which generated this result transmitted reference range: 27 - 49 mmHg. The reference range was not used to interpret this result as normal/abnormal. VENOUS PO2, CORD (test code = 1236782003) 18 See_Comment [Automated me ssage] The system which generated this result transmitted reference range: 17 - 41 mmHg. The reference range was not used to interpret this result as normal/abnormal. VENOUS BICARBONATE, CORD (test code = 7355518512) 24 See_Comment [Automa susie message] The system which generated this result transmitted reference range: 12 - 29 mEq/L. The reference range was not used to interpret this result as normal/abnormal. Lab Interpretation (test code = 81511-5) Abnormal [facility]field[facility]/2 AG-AB WITH [id number] 14:03:49* Test Item Value Reference Range Interpretation Comme nts HIV Semi-quantitative (test code = 75262-4) 0.10 Negative MALVIN (test code = MALVIN) Non-reactive for HIV-1 antigen and HIV-1/HIV-2 antibodies. ?No laboratory evidence of HIV infection. ?Repeat in 2-4 weeks if acute HIV infection is suspected. [facility]fieldHepatitis B Surface [id number] 13:54:44 * Test Item Value Reference Range Interpretation Comme nts HBsAg Semi-Quantitative (iasbel t code = 5195-3) 0.05 Negative [facility]fieldCBC with [id number] 12:46:41* Test Item Value Reference Range Interpretation Comme nts WBC (test code = 6690-2) 17.17 See_Comment H [Automated message] The system which generated this result transmitted reference range: 4.30 - 11.10 10*3/?L. The reference range was not used to interpret this result as normal/abnormal. RBC (test code = 789-8) 3.94 See_Comment [Automated message] The system which generated this result transmitted reference range: 3.93 - 5.25 10*6/?L. The reference range was not used to interpret this result as normal/abnormal. HGB (test code = 718-7) 11.7 g/dL 11.6-15.0 HCT (test code = 4544-3) 35.1 % 35.7-45.2 L MCV (test code = 787-2) 89.1 fL 80.6-95.5 MCH (test code = 785-6) 29.7 pg 25.9-32.8 MCHC (test code = 786-4) 33.3 g/dL 31.6-35.1 RDW-SD (test code = 70122-4) 42.0 fL 39.0-49.9 RDW-CV (test code = 788-0) 12.9 % 12.0-15.5 PLT (test code = 777-3) 264 See_Comment [Automated message] The system which generated this result transmitted reference range: 166 - 358 10*3/?L. The reference range was not used to interpret this result as normal/abnormal. MPV (test code = 73113-8) 10.7 fL 9.5-12.9 NRBC/100 WBC (test code = 3770035025) 0.0 See_Comment [Automated message] The system which generated this result transmitted reference range: 0.0 - 10.0 /100 WBCs. The reference range was not used to interpret this result as normal/abnormal. NRBC x10^3 (test code = 7452374893) See_Comment [Automated message] The system which generated this result transmitted reference range: 10*3/?L. The reference range was not used to interpret this result as normal/abnormal. GRAN MAT (NEUT) % (test code = 770-8) 86.0 % IMM GRAN % (test code = 3917707707) 0.30 % LYMPH % (test code = 736-9) 9.4 % MONO % (test code = 5905-5) 4.0 % EOS % (test code = 713-8) 0.1 % BASO % (test code = 706-2) 0.2 % GRAN MAT x10^3(ANC) (test code = 5871310008) 14.76 10*3/uL 1.88-7.09 H IMM GRAN x10^3 (test code = 9668538827) 0.06 10*3/uL 0.00-0.06 LYMPH x10^3 (test code = 731-0) 1.62 10*3/uL 1.32-3.29 MONO x10^3 (test code = 742-7) 0.69 10*3/uL 0.33-0.92 EOS x10^3 (test code = 711-2) 0.03-0.39 L BASO x10^3 (test code = 704-7) 0.03 10*3/uL 0.01-0.07 Lab Interpretation (test code = 28061-7) Abnormal [facility]fieldType and Screen - ONCE [id number] 12:45:00 * Test Item Value Reference Range Interpretation Comme nts ABO & RH (test code = 20) B POSITIVE IAT (test code = 1185) Negative [facility]fieldPOMD URINALYSIS W SPECIFIC [id number] 17:50:00* Test Item Value Reference Range Interpretation Comme nts POCT U SP GRAV (test code = 3255) . 1.005-1.025 POCT PH U (test code = 3254) . 5-8 POCT U LEUK EST (test code = 3263) . Negative - Negative POCT U NIT (test code = 3262) . Negative - Negati ve POCT U PROT (test code = 3259) trace Negative - Negat enoch POCT U GLU (test code = 3256) negative Negative - Negati ve POCT U KETONE (test code = 3258) . Negative - Neg ative POCT U UROBILI (test code = 3260) . 0.2-1 POCT U BILI (test code = 3261) . Negative - Negat enoch POCT U BLD (test code = 3257) . Negative - Negati ve POCT U COLOR (test code = 3266) . POCT U APPEAR (test code = 3267) . [facility]fieldPO[facility] URINALYSIS W SPECIFIC [id number] 17:50:00* Test Item Value Reference Range Interpretation Comme nts POCT U SP GRAV (test code = 3255) . 1.005-1.025 POCT PH U (test code = 3254) . 5-8 POCT U LEUK EST (test code = 3263) . Negative - Negative POCT U NIT (test code = 3262) . Negative - Negati ve POCT U PROT (test code = 3259) trace Negative - Negat enoch POCT U GLU (test code = 3256) negative Negative - Negati ve POCT U KETONE (test code = 3258) . Negative - Neg ative POCT U UROBILI (test code = 3260) . 0.2-1 POCT U BILI (test code = 3261) . Negative - Negat enoch POCT U BLD (test code = 3257) . Negative - Negati ve POCT U COLOR (test code = 3266) . POCT U APPEAR (test code = 3267) . [facility] URINALYSIS W SPECIFIC [id number] 17:50:00* Test Item Value Reference Range Interpretation Comme nts POCT U SP GRAV (test code = 3255) . 1.005-1.025 POCT PH U (test code = 3254) . 5-8 POCT U LEUK EST (test code = 3263) . Negative - Negative POCT U NIT (test code = 3262) . Negative - Negati ve POCT U PROT (test code = 3259) trace Negative - Negat enoch POCT U GLU (test code = 3256) negative Negative - Negati ve POCT U KETONE (test code = 3258) . Negative - Neg ative POCT U UROBILI (test code = 3260) . 0.2-1 POCT U BILI (test code = 3261) . Negative - Negat enoch POCT U BLD (test code = 3257) . Negative - Negati ve POCT U COLOR (test code = 3266) . POCT U APPEAR (test code = 3267) . [facility] URINALYSIS W SPECIFIC [id number] 20:54:00* Test Item Value Reference Range Interpretation Comme nts POCT U SP GRAV (test code = 3255) . 1.005-1.025 POCT PH U (test code = 3254) . 5-8 POCT U LEUK EST (test code = 3263) . Negative - N egative POCT U NIT (test code = 3262) . Negative - Negati ve POCT U PROT (test code = 3259) trace Negative - Negat enoch POCT U GLU (test code = 3256) 50 Negative - Negati ve POCT U KETONE (test code = 3258) . Negative - Neg ative POCT U UROBILI (test code = 3260) . 0.2-1 POCT U BILI (test code = 3261) . Negative - Negat enoch POCT U BLD (test code = 3257) . Negative - Negati ve POCT U COLOR (test code = 3266) . POCT U APPEAR (test code = 3267) . [facility] URINALYSIS W SPECIFIC [id number] 20:54:00* Test Item Value Reference Range Interpretation Comme nts POCT U SP GRAV (test code = 3255) . 1.005-1.025 POCT PH U (test code = 3254) . 5-8 POCT U LEUK EST (test code = 3263) . Negative - N egative POCT U NIT (test code = 3262) . Negative - Negati ve POCT U PROT (test code = 3259) trace Negative - Negat enoch POCT U GLU (test code = 3256) 50 Negative - Negati ve POCT U KETONE (test code = 3258) . Negative - Neg ative POCT U UROBILI (test code = 3260) . 0.2-1 POCT U BILI (test code = 3261) . Negative - Negat enoch POCT U BLD (test code = 3257) . Negative - Negati ve POCT U COLOR (test code = 3266) . POCT U APPEAR (test code = 3267) . [facility] URINALYSIS W SPECIFIC [id number] 20:54:00* Test Item Value Reference Range Interpretation Comme nts POCT U SP GRAV (test code = 3255) . 1.005-1.025 POCT PH U (test code = 3254) . 5-8 POCT U LEUK EST (test code = 3263) . Negative - N egative POCT U NIT (test code = 3262) . Negative - Negati ve POCT U PROT (test code = 3259) trace Negative - Negat enoch POCT U GLU (test code = 3256) 50 Negative - Negati ve POCT U KETONE (test code = 3258) . Negative - Neg ative POCT U UROBILI (test code = 3260) . 0.2-1 POCT U BILI (test code = 3261) . Negative - Negat enoch POCT U BLD (test code = 3257) . Negative - Negati ve POCT U COLOR (test code = 3266) . POCT U APPEAR (test code = 3267) . [facility] URINALYSIS W SPECIFIC [id number] 12:55:00* Test Item Value Reference Range Interpretation Comme nts POCT U SP GRAV (test code = 3255) . 1.005-1.025 POCT PH U (test code = 3254) . 5-8 POCT U LEUK EST (test code = 3263) . Negative - N egative POCT U NIT (test code = 3262) . Negative - Negati ve POCT U PROT (test code = 3259) TRACE Negative - Negat enoch POCT U GLU (test code = 3256) 50 Negative - Negati ve POCT U KETONE (test code = 3258) . Negative - Neg ative POCT U UROBILI (test code = 3260) . 0.2-1 POCT U BILI (test code = 3261) . Negative - Negat enoch POCT U BLD (test code = 3257) . Negative - Negati ve POCT U COLOR (test code = 3266) . POCT U APPEAR (test code = 3267) . [facility] URINALYSIS W SPECIFIC [id number] 13:13:00* Test Item Value Reference Range Interpretation Comme nts POCT U SP GRAV (test code = 3255) . 1.005-1.025 POCT PH U (test code = 3254) . 5-8 POCT U LEUK EST (test code = 3263) . Negative - N egative POCT U NIT (test code = 3262) . Negative - Negati ve POCT U PROT (test code = 3259) TRACE Negative - Negat enoch POCT U GLU (test code = 3256) NEG Negative - Negati ve POCT U KETONE (test code = 3258) . Negative - Neg ative POCT U UROBILI (test code = 3260) . 0.2-1 POCT U BILI (test code = 3261) . Negative - Negat enoch POCT U BLD (test code = 3257) . Negative - Negati ve POCT U COLOR (test code = 3266) . POCT U APPEAR (test code = 3267) . [facility] URINALYSIS W SPECIFIC [id number] 13:17:00* Test Item Value Reference Range Interpretation Comme nts POCT U SP GRAV (test code = 3255) . 1.005-1.025 POCT PH U (test code = 3254) . 5-8 POCT U LEUK EST (test code = 3263) . Negative - N egative POCT U NIT (test code = 3262) . Negative - Negati ve POCT U PROT (test code = 3259) trace Negative - Negat enoch POCT U GLU (test code = 3256) neg Negative - Negati ve POCT U KETONE (test code = 3258) . Negative - Neg ative POCT U UROBILI (test code = 3260) . 0.2-1 POCT U BILI (test code = 3261) . Negative - Negat enoch POCT U BLD (test code = 3257) . Negative - Negati ve POCT U COLOR (test code = 3266) . POCT U APPEAR (test code = 3267) . [facility] URINALYSIS W SPECIFIC [id number] 15:01:00* Test Item Value Reference Range Interpretation Comme nts POCT U SP GRAV (test code = 3255) . 1.005-1.025 POCT PH U (test code = 3254) . 5-8 POCT U LEUK EST (test code = 3263) . Negative - N egative POCT U NIT (test code = 3262) . Negative - Negati ve POCT U PROT (test code = 3259) 1+ Negative - Negat enoch POCT U GLU (test code = 3256) Neg Negative - Negati ve POCT U KETONE (test code = 3258) . Negative - Neg ative POCT U UROBILI (test code = 3260) . 0.2-1 POCT U BILI (test code = 3261) . Negative - Negat enoch POCT U BLD (test code = 3257) . Negative - Negati ve POCT U COLOR (test code = 3266) . POCT U APPEAR (test code = 3267) [facility] URINALYSIS W SPECIFIC [id number] 15:01:00* Test Item Value Reference Range Interpretation Comme nts POCT U SP GRAV (test code = 3255) . 1.005-1.025 POCT PH U (test code = 3254) . 5-8 POCT U LEUK EST (test code = 3263) . Negative - N egative POCT U NIT (test code = 3262) . Negative - Negati ve POCT U PROT (test code = 3259) 1+ Negative - Negat enoch POCT U GLU (test code = 3256) Neg Negative - Negati ve POCT U KETONE (test code = 3258) . Negative - Neg ative POCT U UROBILI (test code = 3260) . 0.2-1 POCT U BILI (test code = 3261) . Negative - Negat enoch POCT U BLD (test code = 3257) . Negative - Negati ve POCT U COLOR (test code = 3266) . POCT U APPEAR (test code = 3267) [facility] URINALYSIS W SPECIFIC [id number] 14:47:00* Test Item Value Reference Range Interpretation Comme nts POCT U SP GRAV (test code = 3255) . 1.005-1.025 POCT PH U (test code = 3254) . 5-8 POCT U LEUK EST (test code = 3263) . Negative - Negative POCT U NIT (test code = 3262) . Negative - Negati ve POCT U PROT (test code = 3259) trace Negative - Negat enoch POCT U GLU (test code = 3256) negative Negative - Negati ve POCT U KETONE (test code = 3258) . Negative - Neg ative POCT U UROBILI (test code = 3260) . 0.2-1 POCT U BILI (test code = 3261) . Negative - Negat enoch POCT U BLD (test code = 3257) . Negative - Negati ve POCT U COLOR (test code = 3266) . POCT U APPEAR (test code = 3267) . [facility]field[facility]LLA SCREEN (NURIA) [id number] 19:17:29 * Test Item Value Reference Range Interpretation Comme [facility] Rubella screen IgG (test code = 6026657372) Positive Negative MALVIN (test code = MALVIN) Positive - Indicat es the patient was exposed to Rubella through infection or vaccination.Negative - Indicates the patient could be susceptible to Rubella infection.Equivocal - A second specimen should be sent. [facility] [id number] 19:17:29* Test Item Value Reference Range Interpretation Comme nts VZV IgG antibody (test code = 41930-6) Positive Negative MALVIN (test code = MALVIN) Positive - Indicat es the patient was exposed to VZV through infection or vaccination.Negative - Indicates the patient could be susceptible to VZV infection.Equivocal - A second specimen should be sent for testing. [facility]fieldGAL ONLY - SYPHILIS [id number] 17:48:38* Test Item Value Reference Range Interpretation Comme [facility] Syphilis IgG/IgM (test code = 14619-0) Non-reactive Non-reactive MALVIN (test code = MALVIN) Non-reactive - No serologic evidence of T. pallidum infection. Cannot exclude incubating or early syphilis. Submit a second specimen in 2-4 weeks if syphilis is clinically suspected. Equivocal - Further testing to follow. Reactive - Further testing to follow. Lab Interpretation (test code = 34602-5) Normal [facility]field[facility]/2 AG-AB WITH [id number] 17:08:10* Test Item Value Reference Range Interpretation Comme [facility] HIV Semi-quantitative (test code = 37193-3) Negative Negative MALVIN (test code = MALVIN) Non-reactive for HIV-1 antigen and HIV-1/HIV-2 antibodies. ?No laboratory evidence of HIV infection. ?Repeat in 2-4 weeks if acute HIV infection is suspected. [facility]fieldPRENATAL WORKUP, BLOOD [id number] 07:22:42 * Test Item Value Reference Range Interpretation Comme [facility] ABO & RH (test code = 20) B POSITIVE Performed at [facility] Laboratory Services - [facility] Blood [address] [address]Sk[address] Free: [phone] No. [id number] IAT (test code = 1185) Negative Performed at [facility] Laboratory Services - [facility] Blood [address] [address]Jcys Free: [phone] No. [id number] [facility]fieldHEPATITIS B SURFACE [id number] 07:12:36 * Test Item Value Reference Range Interpretation Comme nts HBsAg Semi-Quantitative (isabel t code = 5195-3) Negative Negative [facility]fieldCB WITH [id number] 06:02:07* Test Item Value Reference Range Interpretation Comme nts WBC (test code = 6690-2) See_Comment [Automated messa ge] The system which generated this result transmitted reference range: 4.30 - 11.10 10*3/?L. The reference range was not used to interpret this result as normal/abnormal. RBC (test code = 789-8) See_Comment [Automated messa ge] The system which generated this result transmitted reference range: 3.93 - 5.25 10*6/?L. The reference range was not used to interpret this result as normal/abnormal. HGB (test code = 718-7) 12.5 g/dL 11.6-15.0 HCT (test code = 4544-3) 37.3 % 35.7-45.2 MCV (test code = 787-2) 89.9 fL 80.6-95.5 MCH (test code = 785-6) 30.1 pg 25.9-32.8 MCHC (test code = 786-4) 33.5 g/dL 31.6-35.1 RDW-SD (test code = 40863-3) 38.7 fL 39.0-49.9 L RDW-CV (test code = 788-0) 11.9 % 12.0-15.5 L PLT (test code = 777-3) See_Comment [Automated messa ge] The system which generated this result transmitted reference range: 166 - 358 10*3/?L. The reference range was not used to interpret this result as normal/abnormal. MPV (test code = 52857-3) 11.5 fL 9.5-12.9 NRBC/100 WBC (test code = 7152567595) See_Comment [Automated me ssage] The system which generated this result transmitted reference range: 0.0 - 10.0 /100 WBCs. The reference range was not used to interpret this result as normal/abnormal. NRBC x10^3 (test code = 1832233992) See_Comment [Automated messa ge] The system which generated this result transmitted reference range: 10*3/?L. The reference range was not used to interpret this result as normal/abnormal. GRAN MAT (NEUT) % (test code = 770-8) 71.8 % IMM GRAN % (test code = 5646239181) 0.40 % LYMPH % (test code = 736-9) 22.4 % MONO % (test code = 5905-5) 5.0 % EOS % (test code = 713-8) 0.2 % BASO % (test code = 706-2) 0.2 % GRAN MAT x10^3(ANC) (test code = 9465520817) 5.76 10*3/uL 1.88-7.09 IMM GRAN x10^3 (test code = 1038424079) 0.03 10*3/uL 0.00-0.06 LYMPH x10^3 (test code = 731-0) 1.80 10*3/uL 1.32-3.29 MONO x10^3 (test code = 742-7) 0.40 10*3/uL 0.33-0.92 EOS x10^3 (test code = 711-2) 0.03-0.39 L BASO x10^3 (test code = 704-7) 0.01-0.07 Lab Interpretation (test code = 18185-0) Abnormal [facility] [id number] 21:10:00* Test Item Value Reference Range Interpretation Comme nts POCT PREG (test code = 1605) Positive On board controls acceptable with C Line (test code = 3574) Yes POCT PREG LOT # (test code = 3575) POCT PREG TEST DATE ( test code = 3576) [facility] URINALYSIS W/O SPECIFIC [id number] 21:09:00* Test Item Value Reference Range Interpretation Comme nts POCT PH U (test code = 3254) 7 mg/dl 5-8 POCT U LEUK EST (test code = 3263) trace Negative - Negative POCT U NIT (test code = 3262) positive Negative - Negati ve POCT U PROT (test code = 0469) trace Negative - Negat enoch POCT U GLU (test code = 1686) negative Negative - Negati ve POCT U KETONE (test code = 3258) 3+ Negative - Neg ative POCT U BLD (test code = 3257) trace Negative - Negati ve [facility]
[2024-07-15 20:52] LABS: Specific Gravity 1.027 (1.005-1.030); Urine Bilirubin NEGATIVE (Negative); Urine Blood Negative (Negative); Urine Clarity Clear (Clear); Urine Color Light-Yellow (Yellow); Urine Glucose NEGATIVE (Negative); Urine Ketones NEGATIVE (Negative); Urine Microscopic Reflex YN NO UMIC; Urine Nitrite NEGATIVE (Negative); Urine Protein NEGATIVE (Negative); Urine Urobilinogen 2+ (Normal)
[2024-07-15 20:53] LABS: Specific Gravity 1.027 (1.005-1.030)
[2024-07-15 20:53] LABS: Absolute Lymphocytes (CBC) 1.6 K/uL (0.7-4.9); Absolute Monocytes 0.8 K/uL (0.1-1.3); Absolute Neutrophil 13.6 K/uL (1.8-8.0); Basophils % 0.3 % (0-1.3); Eosinophils % 0.3 % (0-4.4); Hematocrit 37.9 % (36.0-45.0); Hemoglobin 12.9 g/dL (12.0-15.0); Lymphocytes % 9.8 % (15.3-44.8); MCH 30.1 pg (27.0-35.0); MCV 88.5 fL (80-100); MPV 9.3 fL (7.6-11.3); Monocytes % 4.8 % (3.3-12.3); Neutrophils % 84.8 % (41.7-73.7); Platelets 211 thou/uL (152-406); RBC Red Blood Cell Count 4.28 M/uL (3.86-4.86); Red Cell Distribution Width 12.5 % (12.1-15.2)
[2024-07-15] MEDS ORDERED: IBUPROFEN 400 MG TAB ONE (21:02)
[2024-07-15] MEDS ORDERED: MORPHINE 4 MG/ML SYR ONE (21:02)
[2024-07-15] MEDS ORDERED: ACETAMINOPHEN 500 MG TAB ONE (21:02)
[2024-07-15] MEDS ORDERED: ONDANSETRON 4 MG/2 ML VIAL ONE (21:02)
[2024-07-15] MEDS ORDERED: NA CHLORIDE 0.9% 500 ML ONE (21:03)
[2024-07-15 21:07] LABS: Albumin 3.7 g/dL (3.4-5.0); Albumin/Globulin Ratio 0.9 (1.1-1.8); Anion Gap 6.2 mEq/L (5.0-15.0); Bilirubin Total 0.5 mg/dL (0.2-1.0); Potassium 3.2 mEq/L (3.5-5.1); Protein, Total 7.7 g/dL (6.4-8.2)
[2024-07-15] MEDS ORDERED: PIPERACIL/TAZO 3.375 GM VIAL IV ONE (21:21)
[2024-07-15] MEDS ORDERED: NA CHLORIDE 0.9% 100 ML ONE (21:21)
--- NOTE | 2024-07-15 22:16 | ER ---
Nurse's Notes [facility] Name: Patricia Hastings Age: 24 yrs Sex: Female : 2000 Arrival Date: 07/15/2024 Time: 19:34 Bed 5 Private MD: Diagnosis: Acute appendicitis with localized peritonitis Presentation: 07/15 20:36 Chief complaint: Patient states: I have right lower abd pain for two weeks days. bm8 Coronavirus screen: At this time, the client does not indicate any symptoms associated with coronavirus-19. Ebola Screen: Patient negative for fever greater than or equal to 101.5 degrees Fahrenheit, and additional compatible Ebola Virus Disease symptoms Patient denies exposure to infectious person. Patient denies travel to an Ebola-affected area in the 21 days before illness onset. No symptoms or risks identified at this time. Initial Sepsis Screen: Does the patient meet any 2 criteria? No. Patient's initial sepsis screen is negative. Does the patient have a suspected source of infection? No. Patient's initial sepsis screen is negative. Risk Assessment: Do you want to hurt yourself or someone else? Patient reports no desire to harm self or others. Onset of symptoms was July 13, 2024. 20:36 Method Of Arrival: Ambulatory bm8 20:36 Acuity: JANES 3 bm8 Triage Assessment: 20:38 General: Appears in no apparent distress. comfortable, Behavior is calm, cooperative, bm8 appropriate for age. Pain: Complains of pain in right lower quadrant Pain does not radiate. Pain currently is 8 out of 10 on a pain scale. Quality of pain is described as sharp. EENT: No deficits noted. No signs and/or symptoms were reported regarding the EENT system. Neuro: No deficits noted. Level of Consciousness is awake, alert, obeys commands, Oriented to person, place, time, situation, Appropriate for age. Cardiovascular: Denies chest pain, Heart tones S1 S2 present Capillary refill < 3 seconds in bilateral fingers Patient's skin is warm and dry. Respiratory: Airway is patent Respiratory effort is even, unlabored, Respiratory pattern is regular, symmetrical, Breath sounds are clear bilaterally. GI: Abdomen is flat, non-distended, Bowel sounds present X 4 quads. Abdomen is tender to palpation in suprapubic area and right lower quadrant Abdomen has rebound tenderness in right lower quadrant Reports lower abdominal pain, Pain is 8 out of 10 on a pain scale. : No deficits noted. No signs and/or symptoms were reported regarding the genitourinary system. Derm: No deficits noted. No signs and/or symptoms reported regarding the dermatologic system. Musculoskeletal: No deficits noted. No signs and/or symptoms reported regarding the musculoskeletal system. 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 - Infectious Disease History:: Denies. - Social history:: Smoking status: Patient denies any tobacco usage or history of. Patient/guardian denies using alcohol, street drugs. Screenin:20 [facility] ED Fall Risk Assessment (Adult) History of falling in the last 3 months, bm8 including since admission No falls in past 3 months (0 pts) Confusion or Disorientation No (0 pts) Intoxicated or Sedated No (0 pts) Impaired Gait No (0 pts) Mobility Assist Device Used No (0 pt) Altered Elimination No (0 pt) Score/Fall Risk Level 0 - 2 = Low Risk Oriented to surroundings, Maintained a safe environment, Educated pt \T\ family on fall prevention, incl call for assistance when getting out of bed, Assessed \T\ reinforced patient's understanding of fall precautions, Hourly rounding (assess needs \T\ fall precautionary measures) done, Used ambulatory aids as needed (educated on \T\ assisted with), Used gait belt as appropriate. Abuse screen: Denies threats or abuse. Nutritional screening: No deficits noted. Tuberculosis screening: No symptoms or risk factors identified. Assessment: 21:20 Reassessment: Patient appears in no apparent distress at this time. No changes from bm8 previously documented assessment. Patient and/or family updated on plan of care and expected duration. Pain level reassessed. Patient is alert, oriented x 3, equal unlabored respirations, skin warm/dry/pink. 23:30 Reassessment: Patient appears in no apparent distress at this time. No changes from lg3 previously documented assessment. Patient and/or family updated on plan of care and expected duration. Pain level reassessed. Patient is alert, oriented x 3, equal unlabored respirations, skin warm/dry/pink. Patient states feeling better. Patient states symptoms have improved. Vital Signs: 20:36 BP 118 / 81; Pulse 93; Resp 18; Temp 99.3; Pulse Ox 100% ; Weight 52.16 kg; Height 5 bm8 ft. 8 in. ; Pain 8/10; 21:20 BP 121 / 85; Pulse 105; Resp 20; Temp 99.3; Pulse Ox 100% ; Pain 8/10; bm8 23:30 BP 113 / 84; Pulse 101; Resp 19; Temp 98.6(O); Pulse Ox 99% on R/A; lg3 20:36 Body Mass Index 17.03 (52.16 kg, 175 cm) bm8 20:36 Pain Scale: Adult bm8 21:20 Pain Scale: Adult bm8 [place] Coma Score: 21:20 Eye Response: spontaneous(4). Motor Response: obeys commands(6). Verbal Response: bm8 oriented(5). Total: 15. ED Course: 19:36 Patient arrived in ED. am2 20:01 Johny Esparza MD is Attending Physician. ec2 20:36 Anibal Henry, JOSE RAMON is Primary Nurse. bm8 20:38 Triage completed. bm8 20:38 Arm band placed on right wrist. bm8 20:40 No provider procedures requiring assistance completed. Initial lab(s) drawn, by ED 8 staff, sent to lab. Urine collected: clean catch specimen, clear. Inserted saline lock: 20 gauge in right antecubital area, using aseptic technique. Blood collected. Flushed with 10 mL NS. Patient maintains SpO2 saturation greater than 95% on room air. 21:15 First set of blood cultures drawn by me. vk 21:20 CT Abd/Pelvis - IV Contrast Only In Process Unspecified. EDMS 21:20 Patient has correct armband on for positive identification. Bed in low position. Call bm8 light in reach. Side rails up X 1. Adult w/ patient. Client placed on continuous cardiac and pulse oximetry monitoring. NIBP monitoring applied. Pulse ox on. NIBP on. Door closed. Noise minimized. Warm blanket given. Pillow given. Verbal reassurance given. Head of bed elevated. 21:36 Second set of blood cultures drawn by me. vk 21:43 Blood Culture Adult (2) Sent. vk 21:43 Lactate w/ 2H reflex if indic. Sent. vk 22:15 Darvin Fortune MD is Hospitalizing Provider. ec2 23:30 Patient admitted, IV remains in place. lg3 Administered Medications: 21:14 Drug: NS 0.9% IV 500 ml IV at bolus once; to be given as a bolus over 30 minutes Route: bm8 IV; Rate: bolus; Site: right antecubital; 23:34 Follow up: Response: No adverse reaction; IV Status: Completed infusion; IV Intake: lg3 500ml 21:14 Drug: Acetaminophen PO 1000 mg PO once Route: PO; bm8 23:34 Follow up: Response: No adverse reaction lg3 21:14 Drug: Ibuprofen PO 800 mg PO once Route: PO; bm8 23:33 Follow up: Response: No adverse reaction lg3 21:15 Drug: Ondansetron IVP 4 mg IVP once; over 2 minutes Route: IVP; Site: right antecubital;bm8 23:34 Follow up: Response: No adverse reaction lg3 21:15 Drug: morphine IVP or IV 4 mg IVP once over 4 mins Route: IVP; Infused Over: 4 mins; bm8 Site: right antecubital; 23:34 Follow up: Response: No adverse reaction; Marked relief of symptoms lg3 21:46 Drug: Piperacillin-Tazobactam IVPB 3.375 grams IVPB once over 60 mins; (mix in NS 100 bm8 mL) Route: IVPB; Infused Over: 60 mins; Site: right antecubital; 23:33 Follow up: Response: No adverse reaction; IV Status: Completed infusion; IV Intake: lg3 100ml Medication: 21:20 VIS not applicable for this client. bm8 Intake: 23:33 IV: 100ml; Total: 100ml. lg3 23:34 IV: 500ml; Total: 600ml. lg3 Outcome: 22:15 Decision to Hospitalize by Provider. ec2 23:34 Admitted to ICU accompanied by tech, via wheelchair, room 5, lg3 23:34 Condition: stable 23:34 Instructed on the need for admit, Demonstrated understanding of instructions, 23:35 Patient left the ED. lg3 Signatures: Dispatcher [employer] Mari Sloan Maggie Snow, JOSE RAMON RN lg3 Johny Esparza MD MD ec2 Denise Carrillo Brad, RN RN bm8
--- NOTE | 2024-07-15 22:16 | EDPHYS ---
Physician Documentation [facility] Name: Patricia Hastings Age: 24 yrs Sex: Female : 2000 Arrival Date: 07/15/2024 Time: 19:34 Bed 5 Private MD: ED Physician Johny Esparza HPI: 07/15 20:24 This 24 yrs old Female presents to ER via Unassigned with complaints of ec2 Abdominal Pain - RLQ. 20:24 Patient arrives today for evaluation of right-sided abdominal pain. Patient reports she ec2 has been having pain constant since yesterday. Patient reports she has had previous similar pain however typically this resolves. Patient reports no nausea, no vomiting, does endorse some constipation. No urinary complaints. LMP was approximately 3 to 4 weeks ago. Reports no previous abdominal surgeries. No medication allergies. No diagnosed medical problems.. 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 - Infectious Disease History:: Denies. - Social history:: Smoking status: Patient denies any tobacco usage or history of. Patient/guardian denies using alcohol, street drugs. ROS: 20:25 Constitutional: as per hpi ec2 Exam: 20:26 Constitutional: GEN: NAD Head: atraumatic Eyes: EOMI Ears: External ears are ec2 normal. CV: regular rate LUNGS: no respiratory distress ABD: non-distended, right lower quadrant abdominal TTP, CVA's bilaterally negative. SKIN: no evidence of rashes MSK: no evidence of trauma Vital Signs: 20:36 BP 118 / 81; Pulse 93; Resp 18; Temp 99.3; Pulse Ox 100% ; Weight 52.16 kg; Height 5 bm8 ft. 8 in. ; Pain 8/10; 21:20 BP 121 / 85; Pulse 105; Resp 20; Temp 99.3; Pulse Ox 100% ; Pain 8/10; bm8 23:30 BP 113 / 84; Pulse 101; Resp 19; Temp 98.6(O); Pulse Ox 99% on R/A; lg3 20:36 Body Mass Index 17.03 (52.16 kg, 175 cm) bm8 20:36 Pain Scale: Adult bm8 21:20 Pain Scale: Adult bm8 [place] Coma Score: 21:20 Eye Response: spontaneous(4). Motor Response: obeys commands(6). Verbal Response: bm8 oriented(5). Total: 15. MDM: 20:13 Medical Screening Exam initiated ec2 20:26 Data reviewed: vital signs, nurses notes. ED course: Patient arrives today for ec2 evaluation of right-sided abdominal pain. Examination yields abdominal findings above. Will obtain lab work, urine studies, CT imaging. DDx include processes such as appendicitis, UTI, pyelonephritis.. 21:31 ED course: Labs are pertinent for leukocytosis, hypokalemia 3.2. Urine is noninfectious ec2 appearing, negative for testing. Pending CT imaging.. 22:15 ED course: Discussed with radiology, appendicitis noted, will admit for appendicitis, ec2 surgery consulted, will keep n.p.o., discussed with hospitalist will admit primarily.. 07/15 20:24 Order name: CBC with Diff; Complete Time: 21:14 ec2 07/15 20:24 Order name: CMP; Complete Time: 21:14 ec2 07/15 20:24 Order name: Lipase; Complete Time: 21:14 ec2 07/15 20:24 Order name: Test, Urine; Complete Time: 21:14 ec2 07/15 20:24 Order name: Urinalysis w/ reflexes; Complete Time: 21:14 ec2 07/15 21:15 Order name: Blood Culture Adult (2) ec2 07/15 21:15 Order name: Lactate w/ 2H reflex if indic.; Complete Time: 22:10 ec2 07/15 22:55 Order name: Urinalysis w/ reflexes EDMS 07/15 22:55 Order name: CBC with Automated Diff EDMS 07/15 22:55 Order name: CBC with Automated Diff EDMS 07/15 22:55 Order name: Comprehensive Metabolic Panel EDMS 07/15 22:55 Order name: Comprehensive Metabolic Panel EDMS 07/15 20:24 Order name: CT Abd/Pelvis - IV Contrast Only; Complete Time: 22:30 ec2 07/15 22:55 Order name: CONS Physician Consult EDMS 07/15 20:24 Order name: IV Saline Lock; Complete Time: 20:49 ec2 07/15 20:24 Order name: Labs collected and sent; Complete Time: 20:49 ec2 07/15 21:15 Order name: NPO; Complete Time: 21:24 ec2 Administered Medications: 21:14 Drug: NS 0.9% IV 500 ml IV at bolus once; to be given as a bolus over 30 minutes Route: bm8 IV; Rate: bolus; Site: right antecubital; 23:34 Follow up: Response: No adverse reaction; IV Status: Completed infusion; IV Intake: lg3 500ml 21:14 Drug: Acetaminophen PO 1000 mg PO once Route: PO; bm8 23:34 Follow up: Response: No adverse reaction lg3 21:14 Drug: Ibuprofen PO 800 mg PO once Route: PO; bm8 23:33 Follow up: Response: No adverse reaction lg3 21:15 Drug: Ondansetron IVP 4 mg IVP once; over 2 minutes Route: IVP; Site: right antecubital;bm8 23:34 Follow up: Response: No adverse reaction lg3 21:15 Drug: morphine IVP or IV 4 mg IVP once over 4 mins Route: IVP; Infused Over: 4 mins; bm8 Site: right antecubital; 23:34 Follow up: Response: No adverse reaction; Marked relief of symptoms lg3 21:46 Drug: Piperacillin-Tazobactam IVPB 3.375 grams IVPB once over 60 mins; (mix in NS 100 bm8 mL) Route: IVPB; Infused Over: 60 mins; Site: right antecubital; 23:33 Follow up: Response: No adverse reaction; IV Status: Completed infusion; IV Intake: lg3 100ml Disposition Summary: 07/15/24 22:15 Hospitalization Ordered Notes: Hospitalization Status: Inpatient Admission ec2 Provider: Darvin Fortune ecMay Condition: Stable ec2 Problem: new ec2 Symptoms: have improved ec2 Bed/Room Type: Standard ec2 Location: Intensive Care Unit(07/15/24 22:34) cg Room Assignment: 3-(07/15/24 22:34) cg Diagnosis - Acute appendicitis with localized peritonitis ec2 Forms: - Medication Reconciliation Form ec2 - SBAR form ec2 - Leadership Thank You Letter ec2 Critical care time excluding procedures: 22:15 Critical care time: Bedside Care: 30 minutes, Consultation: 5 minutes. Total time: 35 ec2 minutes Signatures: Dispatcher [employer] Sandra Bruno, RN RN cg Alice Del Cid, RN RN kb3 Johny Esparza MD MD ec2 Anibal Henry, RN RN bm8 Maggie Snow RN lg3 Corrections: (The following items were deleted from the chart) 20:24 20:24 CBC+H.LAB.BRZ ordered. EDMS EDMS 20:24 20:24 COMPREHENSIVE METABOLIC PANEL+C.LAB.BRZ ordered. EDMS EDMS 20:24 20:24 LIPASE+C.LAB.BRZ ordered. EDMS EDMS 20:24 20:24 Test, Urine+UC.LAB.BRZ ordered. EDMS EDMS 20:24 20:24 Urinalysis+U.LAB.BRZ ordered. EDMS EDMS 20:24 20:24 Abdomen Pelvis W Con+CT.RAD.BRZ ordered. EDMS EDMS 22:34 22:15 Telemetry/MedSurg (Inpatient) ec2 kb3 22:34 22:15 ec2 kb3 22:34 22:34 Intensive Care Unit kb3 cg 22:34 22:34 3- kb3 cg
--- NOTE | 2024-07-15 22:28 | RAD REPORT ---
EXAMINATION: CT Abdomen Pelvis W Contrast CLINICAL INDICATION: Female, 24 years old. ABD PAIN TECHNIQUE: CT abdomen and pelvis was performed, after the administration of IV contrast, as per [facility] protocol. Axial, sagittal and coronal reconstructions were obtained. One or more of the following dose reduction techniques were used: Automated exposure control, adjustment of the mA and k V according to patient size, and iterative reconstruction. Unless otherwise specified, incidental findings do not require dedicated imaging follow-up. COMPARISON: No prior exam. FINDINGS: LOWER CHEST: The visualized lung bases are clear. LIVER: Normal in size and contour. No focal lesion. BILIARY SYSTEM: No suspicious abnormalities. SPLEEN: Normal size. No focal lesion. PANCREAS: No mass, ductal dilation, or yessenia-pancreatic fluid. ADRENALS: Normal; no mass. KIDNEYS: Normal size and contour. No hydronephrosis. URINARY BLADDER: Unremarkable. GASTROINTESTINAL TRACT: No evidence of free air,, bowel obstruction or abscess. Small-volume pelvic fluid. APPENDIX: Wall thickening and hyperenhancement throughout the appendix, which is dilated measuring 9 mm in caliber. Pronounced fat stranding along the mid appendix. The tip of the appendix is suspected to be present in the deep pelvis, however is partially obscured by prominent adnexal struct ures and small-volume pelvic fluid. LYMPH NODES: No lymphadenopathy. MUSCULOSKELETAL: No acute or suspicious osseous abnormality. ADDITIONAL FINDINGS: Dominant right ovarian cyst or follicle measuring 2.1 cm. IMPRESSION: Sequelae of acute appendicitis as above, without overt complications. Free pelvic fluid, which could be of adnexal origin. THIS REPORT CONTAINS FINDINGS THAT MAY BE CRITICAL TO PATIENT CARE. The findings were verbally commun icated via telephone to Johny Esparza on 07/15/2024 10:14 PM.
[2024-07-15] MEDS ORDERED: ACETAMINOPHEN 325 MG TABLET PO PRN (22:49)
[2024-07-15] MEDS ORDERED: ONDANSETRON 4 MG/2 ML VIAL IV PRN (22:49)
--- NOTE | 2024-07-15 22:49 | P.HP ---
Certification for Inpatient Patient admitted to: Observation With expected LOS: <2 Midnights Practitioner: I am a practitioner with admitting privileges, knowledge of patient current condition, hospital course, and medical plan of care. Services: Services provided to patient in accordance with Admission requirements found in Title 42 Section 412.3 of the Code of Federal Regulations Patient History Date of Service: 07/15/24 Reason for admission: Acute Appendicitis History of Present Illness: 24 yrs old Female with no significant past medical history brought to ER with abdominal pain which started yesterday and has been progressively getting worse. Pain is on the right lower quadrant. Denies any fever or chills. Denies any nausea vomiting or diarrhea. Denies any dysuria. LMP was around 3 weeks ago. No previous past surgical history. Patient was assessed in the ER and had a CT of the abdomen pelvis which was consistent with acute appendicitis and was admitted for further management and surgical consult. Home medications list reviewed: No - Past Medical/Surgical History Past Medical History: Reviewed- Non-Contributory Past Surgical History: Reviewed- Non-Contributory - Family History Family History: Reviewed- Non-Contributory - Social History Smoking Status: Never smoker Review of Systems 10-point ROS is otherwise unremarkable Physical Examination - Vital Signs Temperature: 97.6 F Blood Pressure: 110/60 Pulse: 78 Respirations: 18 Pulse Ox (%): 94 - Physical Exam General: Alert, In no apparent distress, Oriented x3 HEENT: Atraumatic, Normocephalic Neck: Supple Respiratory: Clear to auscultation bilaterally, Normal air movement Cardiovascular: Regular rate/rhythm, Normal S1 S2 Capillary refill: <2 Seconds Gastrointestinal: Soft and benign, W/out hepatosplenomegaly, Tenderness Musculoskeletal: No clubbing, No swelling Integumentary: No rashes Neurological: Normal speech, Normal strength at 5/5 x4 extr, Cranial nerves 3-12 intact, Normal reflexes 2+ Lymphatics: No axilla or inguinal lymphadenopathy - Studies Laboratory Data (last 24 hrs) 07/15/24 07/15/24 20:36 20:36 WBC 16.00 H Hgb 12.9 Hct 37.9 Plt Count 211 Sodium 138 Potassium 3.2 L BUN 15 Creatinine 0.50 L Glucose 99 Total Bilirubin 0.5 AST 11 L ALT 15 Alkaline Phosphatase 89 Lipase 31 Assessment and Plan - Plan Acute appendicitis Pain control IV hydration N.p.o. postmidnight IV antibiotic with Zosyn Surgical consult Discussed with patient Possible need laparoscopic appendectomy DVT prophylaxis Discharge Plan: Home Plan to discharge in: 24 Hours - Advance Directives Does patient have a Living Will: No Does patient have a Durable POA for Healthcare: No - Code Status/Comfort Care Code Status: Full Code Time Spent Managing Pts Care (In Minutes): 48
[2024-07-15 23:43] VITALS: BMI 19.2
[2024-07-15] MEDS: NA CHLORIDE 0.9% 1,000 ML IV SCH (23:45)
[2024-07-16] MEDS: KCL 20 MEQ/100 mL IVPB 20 MEQ/100 ML BAG IV SCH ×2 (01:07→11:53)
[2024-07-16 02:10] LABS: Urine Bilirubin NEGATIVE (Negative); Urine Blood Negative (Negative); Urine Clarity Clear (Clear); Urine Color Colorless (Yellow); Urine Glucose NEGATIVE (Negative); Urine Ketones TRACE (Negative); Urine Microscopic Reflex YN NO UMIC; Urine Nitrite NEGATIVE (Negative); Urine Protein NEGATIVE (Negative); Urine Urobilinogen Normal (Normal); Urine pH 6.5 (5.0-7.0)
[2024-07-16 02:57] LABS: Specific Gravity > 1.030 (1.005-1.030)
[2024-07-16 05:40] LABS: Absolute Eosinophils 0.1 K/uL (0-0.5); Absolute Lymphocytes (CBC) 1.9 K/uL (0.7-4.9); Absolute Monocytes 0.9 K/uL (0.1-1.3); Absolute Neutrophil 8.9 K/uL (1.8-8.0); Basophils % 0.2 % (0-1.3); Eosinophils % 0.5 % (0-4.4); Hematocrit 32.2 % (36.0-45.0); Hemoglobin 11.1 g/dL (12.0-15.0); Lymphocytes % 16.3 % (15.3-44.8); MCH 30.7 pg (27.0-35.0); MCHC 34.5 g/dL (32.0-36.0); MPV 9.4 fL (7.6-11.3); Monocytes % 7.5 % (3.3-12.3); Neutrophils % 75.5 % (41.7-73.7); Platelets 194 thou/uL (152-406); RBC Red Blood Cell Count 3.61 M/uL (3.86-4.86); Red Cell Distribution Width 12.5 % (12.1-15.2)
[2024-07-16 06:17] LABS: Albumin 2.9 g/dL (3.4-5.0); Albumin/Globulin Ratio 0.9 (1.1-1.8); Alkaline Phosphatase 69 U/L (45-117); Anion Gap 5.7 mEq/L (5.0-15.0); BUN Blood Urea Nitrogen 9 mg/dL (7-18); Bicarbonate 27 mEq/L (21-32); Bilirubin Total 0.6 mg/dL (0.2-1.0); Globulin 3.3 g/dL (2.3-3.5); Glomerular Filtration Rate 143 ml/min (=/>90); Glucose Level 98 mg/dL (74-106); Magnesium 2.1 mg/dL (1.6-2.4); Phosphorus 3.4 mg/dL (2.5-4.9); Potassium 3.7 mEq/L (3.5-5.1); Protein, Total 6.2 g/dL (6.4-8.2); Sodium Level 139 mEq/L (136-145)
[2024-07-16 06:21] LABS: ALT/SGPT < 14 U/L (13-56); AST/SGOT < 10 U/L (15-37)
--- NOTE | 2024-07-16 06:57 | P.PN ---
Date of Service: 07/16/24 Subjective: s/p lap appy doing well pain tolerable thirsty ROS: 10 point ROS as noted above, otherwise negative Physical Exam: GEN: Alert, oriented, NAD CV: Regular rate and rhythm, no edema Pulm: Nonlabored respirations on room air, clear bilaterally ABD: soft, RLQ tenderness, surgical dressing c/d/i Neuro: Normal speech, normal affect Problem List: Acute appendicitis, now s/p lap appy (07/16) Hx of Hepatitis B (5+ years ago), untreated on admission presents with worsening RLQ pain. Denies n/v/d. Reports similar episodes in past which typically resolved on its own. LMP ~3 weeks ago. Of note, tested positive for Hepatitis B 5+ years ago in [place] but was not treated. CT abd/pelvis (07/15): Sequelae of acute appendicitis, Free pelvic fluid. 2.1 cm Dominant right ovarian cyst or follicle Dr. Rainey, general surgeon consulted pain control Continue IV zosyn (07/16-); started in ED 07/16 - seen after surgery s/p Lap appy with Dr. Rainey Leukocytosis improving, LFTs/Lipase wnl. BP low-normal, continue IV fluid VTE: SCD for now Code: Full Dispo: Home, ~1 day Time Spent Managing Pts Care (In Minutes): 45
[2024-07-16] MEDS ORDERED: KCL 20 MEQ/100 mL IVPB 20 MEQ/100 ML BAG IV SCH (07:00)
[2024-07-16] MEDS: PIPER TAZO 3.375 GM in NA CHLORIDE 0.9% 100 ML IV SCH (07:33)
--- NOTE | 2024-07-16 09:08 | P.CNS ---
Date of Consult: 07/16/24 Please note the entire history was obtained via etl programmer. Reason for consult: Abdominal pain History of present illness: Patient is a 24-year-old female who presents with 1 day history of right lower quadrant pain associated with nausea. Patient denies vomiting. Patient denies diarrhea. Patient does have occasional constipation associated with bright red blood periodically. Patient denies any dysuria or hematuria. Patient denies any sore throat, runny nose, cough, headaches, dizziness, chest pain, fever or chills. Patient does have anorexia. Review of systems: Otherwise unremarkable Past medical history: Patient tested positive for hepatitis B more than 5 years ago but was not treated in [facility]. Past surgical history: Patient denies any surgical history Allergies: No allergies Social history: Patient does not smoke or drink Family history: Noncontributory Vital signs: Stable, afebrile currently Tmax of 99.3 Physical exam: Awake, alert and oriented x 3 Head and neck exam: No neck masses, no JVD, throat clear neck supple Chest: Clear Heart: S1-S2 Abdomen: Soft, nondistended, positive bowel sounds, positive Rovsing's sign and right lower quadrant tenderness with minimal rebound no rigidity or guarding Extremity: Neurovascularly intact Neuro: Nonfocal Diagnostic data: Leukocytosis with CT of the abdomen pelvis showing evidence of acute appendicitis with some free fluid in the pelvis Assessment: Acute appendicitis Plan/recommendation: Admit, n.p.o., IV fluids, IV antibiotics and to the OR for laparoscopic appendectomy possible open. Patient understands risk, benefits and alternatives and agrees to procedure via etl programmer. CC:
[2024-07-16] MEDS: SUCCINYLCHOLINE 20 MG/ML (10 ML) IV ONE (09:28)
[2024-07-16] MEDS ORDERED: FENTANYL CITR 100 MCG/2 ML ONE (09:40)
[2024-07-16] MEDS ORDERED: propofoL 200 MG/20 ML VIAL IV ONE ×3 (09:40→10:48)
[2024-07-16] MEDS ORDERED: MIDAZOLAM HCL 2 MG/2 ML INJ ONE (09:40)
[2024-07-16] MEDS ORDERED: FENTANYL CITR 100 MCG/2 ML IV ONE (09:40)
[2024-07-16] MEDS ORDERED: ROCURONIUM 50 MG/5 ML VIAL IV ONE (09:40)
[2024-07-16] MEDS ORDERED: MIDAZOLAM HCL 2 MG/2 ML INJ IV ONE (09:40)
[2024-07-16] MEDS ORDERED: dexAMETHasone 4 MG/ML VIAL ONE (10:10)
[2024-07-16] MEDS ORDERED: ONDANSETRON 4 MG/2 ML VIAL ONE (10:10)
[2024-07-16] MEDS ORDERED: GLYCOPYRROLATE 0.2 MG/ML SYR ONE (10:23)
[2024-07-16] MEDS ORDERED: NEOSTIGMINE 1 MG/ML -10 ML VIAL ONE (10:23)
--- NOTE | 2024-07-16 10:38 | P.OP ---
Date of Service: 07/16/24 Preop diagnosis: Acute appendicitis Postop diagnosis: Same Procedure performed: Laparoscopic appendectomy Surgeon: Maikel Rainey MD Aircraft Machinist: Kadie DAY Estimated blood loss: Minimal Specimen: Appendix Findings: As above Anesthesia: General Complications: None Drains: None Fluids and blood products: Nonapplicable Disposition: Recovery room Operative note: Patient brought to the OR and placed in the supine position. General anesthesia began. Patient prepped and draped in usual sterile fashion. Marcaine 0.5% infiltrated locally. 15 blade used to make a 1 cm supraumbilical midline incision. Subcutaneous tissue divided and bleeding controlled with cautery. Fascia identified and divided. #1 Vicryl stay suture placed. Peritoneal cavity entered with sharp blunt dissection. 12 mm trocar placed into the peritoneal cavity under direct vision. Pneumoperitoneum established. Two 5 mm trocar placed. 1 trocar placed in the suprapubic region and the other 1 placed in the left lower quadrant under direct vision. Laparoscopy revealed fluid in the cul-de-sac which was aspirated. The fluid was serosanguineous in appearance. The appendix was retrocecal and acutely inflamed. LigaSure used to divide the mesoappendix and freed the cecum from some adhesions in the right lower quadrant. Base of the appendix was divided with the Endo JOEL stapling device. Remainder of the mesoappendix was divided with LigaSure. The appendix was removed via the umbilicus through a Endo Catch bag. Right lower quadrant irrigated with no evidence of bleeding or bowel injury was appreciated. All trocars were removed under direct vision. Stay sutures tied to each other to reapproximate the fascial defect. Subcutaneous wounds irrigated and bleeding controlled with cautery. 3-0 chromic used to reapproximate subcutaneous tissue and close skin. Sterile dressing applied. Patient awakened and taken to recovery room in good general condition. CC:
[2024-07-16] MEDS ORDERED: HYDROCODONE/APAP 7.5/325 MG TAB PO PRN (11:00)
[2024-07-16] MEDS ORDERED: HYDROMORPHONE HCL 1 MG/ML INJ IV PRN (11:00)
[2024-07-16] MEDS: FENTANYL CITR 100 MCG/2 ML ONE (11:11)
[2024-07-16] MEDS: KETOROLAC 30 MG/ML INJ ONE (11:11)
[2024-07-16] MEDS ORDERED: FLU (Fluarix Triv) TS24-25(6MOS UP)/PF 45 MCG/0.5 ML Syringe IM ONE (13:00)
[2024-07-17 04:34] LABS: Absolute Lymphocytes (CBC) 1.7 K/uL (0.7-4.9); Absolute Monocytes 0.6 K/uL (0.1-1.3); Absolute Neutrophil 6.6 K/uL (1.8-8.0); Basophils % 0.2 % (0-1.3); Hematocrit 28.6 % (36.0-45.0); Lymphocytes % 18.9 % (15.3-44.8); MCH 31.1 pg (27.0-35.0); MCV 88.6 fL (80-100); MPV 9.7 fL (7.6-11.3); Monocytes % 6.8 % (3.3-12.3); Neutrophils % 74.1 % (41.7-73.7); Platelets 164 thou/uL (152-406); RBC Red Blood Cell Count 3.23 M/uL (3.86-4.86); Red Cell Distribution Width 12.8 % (12.1-15.2)
[2024-07-17 05:13] LABS: Anion Gap 10.7 mEq/L (5.0-15.0); Potassium 3.7 mEq/L (3.5-5.1)
[2024-07-17] MEDS: POTASSIUM CL SA 10 MEQ TAB PO ONE (08:03)
--- NOTE | 2024-07-17 08:53 | P.DS ---
Admission Date: 07/15/24 Discharge Date: 07/17/24 Disposition: ROUTINE DISCHARGE Discharge Condition: GOOD Reason for Admission: Acute Appendicitis Consultations: General surgery - Dr. Rainey Brief History of Present Illness: 24 yo F, PMH: none Patient brought to ER with abdominal pain which started yesterday and has been progressively getting worse. Pain is on the right lower quadrant. Denies any fever or chills. Denies any nausea vomiting or diarrhea. Denies any dysuria. LMP was around 3 weeks ago. No previous past surgical history. Patient was assessed in the ER and had a CT of the abdomen pelvis which was consistent with acute appendicitis and was admitted for further management and surgical consult. Hospital Course: Problem List: Acute appendicitis, now s/p lap appy (07/16) Hx of Hepatitis B (5+ years ago), untreated Physician discharge instructions: Patient presented with worsening RLQ pain secondary to acute appendicitis. CT abdomen with findings consistent with sequelae of acute appendicits, also noted 2.1 cm Dominant right ovarian cyst or follicle. Patient was evaluated by Dr. Rainey, general surgeon, and underwent laparoscopic appendectomy on 07/16. Leukocytosis resolved post-operatively. LFTs/Lipase were within normal limits. Patient was monitored overnight, feeling better, pain improved and was deemed stable for discharge. Patient ambulating and tolerating diet without issues on day of discharge. This Patient received IV Zosyn for empiric coverage for simple appendicitis, and will not require any further antibiotics on discharge per Dr. Rainey. Blood pressure during hospitalization was noted to be in the low/normal range and she did not have any symptoms. Follow up with Dr. Rainey in 1 week for further management. Medications: Tylenol #3 as needed for pain Follow up: PCP 3-[address] Rainey in 1 week Please call to schedule / confirm appointments No heavy lifting > 10 lbs for 4-6 weeks or otherwise instructed by Dr. Rainey Do no submerge wound underwater. Instructions from Dr. Rainey: May shower in a.m. Remove outer dressing after shower Keep Steri-Strips on at all times Incentive spirometry as instructed Resume home meds and diet No heavy lifting or strenuous exercise Follow-up my office 1 week, call for appointment Pain meds per the hospitalist team Physical Exam: GEN: Alert, oriented, NAD CV: Regular rate and rhythm, no edema Pulm: Nonlabored respirations on room air, clear bilaterally ABD: soft, nontender, surgical dressing c/d/i Neuro: Normal speech, normal affect Vital Signs/Physical Exam: Temp Pulse Resp BP Pulse Ox 98.0 F 72 16 100/60 99 07/17/24 04:00 07/17/24 04:00 07/17/24 04:00 07/17/24 04:00 07/17/24 04:00 Laboratory Data at Discharge: WBC 8.90 thou/uL (4.3-10.9) 07/17/24 04:06 Hgb 10.0 g/dL (12.0-15.0) L D 07/17/24 04:06 Hct 28.6 % (36.0-45.0) L 07/17/24 04:06 Plt Count 164 thou/uL (152-406) 07/17/24 04:06 Sodium 141 mEq/L (136-145) 07/17/24 04:06 Potassium 3.7 mEq/L (3.5-5.1) 07/17/24 04:06 BUN 7 mg/dL (7-18) 07/17/24 04:06 Creatinine 0.38 mg/dL (0.55-1.02) L 07/17/24 04:06 Glucose 96 mg/dL (74-106) 07/17/24 04:06 Phosphorus 3.4 mg/dL (2.5-4.9) 07/16/24 05:20 Magnesium 2.0 mg/dL (1.6-2.4) 07/17/24 04:06 Total Bilirubin 0.6 mg/dL (0.2-1.0) 07/16/24 05:20 AST < 10 U/L (15-37) L 07/16/24 05:20 ALT < 14 U/L (13-56) 07/16/24 05:20 Alkaline Phosphatase 69 U/L (45-117) D 07/16/24 05:20 Lipase 31 U/L (13-75) 07/15/24 20:36 Home Medications: Codeine/APAP [Tylenol W/Codeine #3 tab] 1 tab PO Q6HP PRN #15 tab 07/17/24 New Medications: Codeine/APAP [Tylenol W/Codeine #3 tab] 1 tab PO Q6HP PRN #15 tab PRN Reason: Pain Physician Discharge Instructions: Physician discharge instructions: Patient presented with worsening RLQ pain secondary to acute appendicitis. CT abdomen with findings consistent with sequelae of acute appendicits, also noted 2.1 cm Dominant right ovarian cyst or follicle. Patient was evaluated by Dr. Rainey, general surgeon, and underwent laparoscopic appendectomy on 07/16. Leukocytosis resolved post-operatively. LFTs/Lipase were within normal limits. Patient was monitored overnight, feeling better, pain improved and was deemed stable for discharge. Patient ambulating and tolerating diet without issues on day of discharge. This Patient received IV Zosyn for empiric coverage for simple appendicitis, and will not require any further antibiotics on discharge per Dr. Rainey. Blood pressure during hospitalization was noted to be in the low/normal range and she did not have any symptoms. Follow up with Dr. Rainey in 1 week for further management. Medications: Tylenol #3 as needed for pain Follow up: PCP 3-[address] Rainey in 1 week Please call to schedule / confirm appointments No heavy lifting > 10 lbs for 4-6 weeks or otherwise instructed by Dr. Rainey Do no submerge wound underwater. Instructiosn from Dr. Rainey: May shower in a.m. Remove outer dressing after shower Keep Steri-Strips on at all times Incentive spirometry as instructed Resume home meds and diet No heavy lifting or strenuous exercise Follow-up my office 1 week, call for appointment Pain meds per the hospitalist team Followup: NONE,NONE [Primary Care Provider] - Maikel Rainey MD [ACTIVE - CAN ADMIT] - 1 Week Time spent managing pt's care (in minutes): 45
[2024-07-17] MEDS ORDERED: POTASSIUM 25 MEQ EFFERV TAB PO ONE (09:00)
[2024-07-17 09:13] VITALS: BP 89/55; TEMP 98.2
--- NOTE | 2024-07-17 10:32 | PN ---
Date of Progress Note: 07/17/2024 Subjective: Patient is awake, alert, tolerating diet. Pain is well controlled. Objective: Vital Signs: Stable. She is afebrile. Abdomen: Benign. Laboratory Data: Reviewed. White count is normal. H and H are essentially stable. Assessment: Status post laparoscopic appendectomy. Recommendations: The patient cleared from surgery for discharge to home. Discharge instructions giv en in detail via a edge molder. The patient will follow up with me in 1 week. YUMIKO/THEODORE Voice ID: [id number] Report ID: [id number]
[2024-07-17 12:47] VITALS: O2SAT 98
== END 2024-07-17 13:38 | disposition home or self-care (01) | DRG 398 ==
LOC: ER 19:34 → OBSVTOIN 22:49 → 3RD-ICU 22:49 → 2ND 07-16 13:25
PROVIDERS: ADMIT Family Medicine; ATTEND Hospitalist
PROC: 0DTJ4ZZ Resection of Appendix, Percutaneous Endoscopic Approach (ICD-10-PCS; principal; 2024-07-16 09:15)
DX: K35.30 Acute appendicitis with localized peritonitis, without perforation or gangrene (principal); B19.10 Unspecified viral hepatitis B without hepatic coma; E87.6 Hypokalemia; N70.92 Oophoritis, unspecified; K59.00 Constipation, unspecified
CPT/HCPCS: 36415; 74177; 80048; 80053; 81003; 81025; 82947; 83605; 83690; 83735; 84100; 85025; 87040; 88304; 94010; 96361; 96365; 96366; 96375; 99285; A4314; J1100; J2250; J2405; J2543; J2704; J2710; J3010; J3480; J7030; J7040; Q9967